=== PATIENT | female | born 1985 | race Caucasian/White ===

== ENCOUNTER 2019-10-28 17:23 | Emergency (ER) | payer OTHER, SELFPAY ==
--- NOTE | ~2019-10-28 | CT_ITS ---
EXAMINATION: CT brain wo con DATE: 10/28/2019 20:19 INDICATION: Migraine headache. TECHNIQUE: Computed tomography (CT) of the head was performed without intravenous contrast. The mA wa s adjusted according to patient size. Iterative reconstruction technique was employed. The dose-lengt h product was 529.67 mGy-cm. COMPARISON: None FINDINGS: There is no intracranial hemorrhage, acute infarction, or abnormal intracranial mass lesion . The ventricles are normal in size. The orbits are normal. There is mild mucosal thickening in the e thmoid sinuses. The mastoid air cells are normal. IMPRESSION: 1. Normal brain. Reviewed, dictated and finalized at location A. IMPRESSION: 1. Normal brain.
[2019-10-28 17:51] VITALS: BP 136/95; PULSE 105; RESP 18; TEMP 36.4; O2SAT 98
--- NOTE | 2019-10-28 19:43 | ED.PSYCH ---
HPI - Psych General Chief Complaint: Psychiatric Symptoms Stated Complaint: CARDENAS with hallucinations, denies SI/HI Time Seen by Provider: 10/28/19 19:43 Source: patient Mode of arrival: ambulatory Limitations: no limitations History of Present Illness HPI Narrative: Patient is a 34-year-old female with a history of schizophrenia bipolar disorder who presents for evaluation of hallucinations. Patient states that she was recently at the inpatient facility, [facility], where she was discharged home for hallucinations and prescribed out Haldol and Ativan. Patient has been unable to follow-up with a primary care physician and has not been able to fill her prescriptions thus she has continued to have daily hallucinations in which the voices are telling her to save the children of the world, eat certain foods and not foods. Patient denies the voices telling her to harm herself or harm others. She has no thoughts of suicide, no thoughts of homicidal ideation. She denies visual hallucinations. Patient states these hallucinations are consistent with her madeline and psychiatric illness. Patient states that she has been unable to sleep for 4 days, she did take 2 Xanax of belonged to her mother on Sunday evening and was able to sleep 8 hours. Patient states the hallucinations are constant for her. Patient also reports history of migraine headaches and currently reports dull, aching headache that has been present for 3 days. She states this is consistent with previous migraine headaches. She denies vision changes but does report sensitivity to light. She denies any numbness or weakness. Related Data Allergies Allergy/AdvReac Type Severity Reaction Status Date / Time iohexol Allergy Mild Hives Verified 01/17/19 13:44 [From CONTRAST - CT, XRAY] prednisone Allergy Mild Rash Verified 01/17/19 14:55 Review of Systems Review of Systems: Narrative: CONSTITUTIONAL: Denies fever, chills, or sweats. EYES: Denies visual changes, reports sensitivity to light, redness, or discharge. ENT: Denies rhinorrhea, congestion, sore throat, or otalgia. CARDIOVASCULAR: Denies chest pain, palpitations, or edema. RESPIRATORY: Denies cough or dyspnea. GASTROINTESTINAL: Denies abdominal pain, nausea, vomiting, or diarrhea. GENITOURINARY: Denies dysuria or hematuria. SKIN: Denies rash or itching. MUSCULOSKELETAL: Denies back pain, joint pain, or myalgia. NEUROLOGIC: Reports headache without numbness, or weakness. PSYCHIATRIC: Reports history of schizophrenia and bipolar disorder [facility] Past Medical History Medical History (Updated 10/28/19 @ 22:46 by Anjelica Bach MD) Bipolar disorder Healthy adult Schizophrenia Surgical History Surgical History (Updated 10/28/19 @ 20:46 by Anjelica Bach MD) H/O tubal ligation Social History Social History (Updated 10/28/19 @ 20:46 by Anjelica Bach MD) Smoking status: Never smoker Alcohol intake: current Substance use: current Substance use type: marijuana Gender identity (if verbalized by the patient): Female Agree to blood products: Yes Exam Narrative: Exam Narrative: GENERAL: Awake, alert, conversant HEAD: Normocephalic, atraumatic. EYES: PERRLA and EOMI. ENT: Nares clear, no rhinorrhea or epistaxis. Mucous membranes moist. NECK: Supple. CHEST: No respiratory distress, breathing even and non labored HEART: Regular rate, sinus rhythm ABDOMEN:Non distended, non tender EXTREMITIES: Normal range of motion. No edema. SKIN: Warm, dry, no rash. NEURO:No focal deficits. Alert and oriented x3 Course Vital Signs Vital signs: Vital Signs Temperature 36.4 C L 10/28/19 17:51 Pulse Rate 105 H 10/28/19 17:51 Respiratory Rate 18 10/28/19 17:51 Blood Pressure 136/95 H 10/28/19 17:51 Pulse Oximetry 98 10/28/19 17:51 Temperature 36.4 C L 10/28/19 17:51 Pulse Rate 85 10/28/19 20:40 Respiratory Rate 19 10/28/19 20:40 Blood Pressure 118/80
[2019-10-28] MEDS: SODIUM CHLORIDE 0.9% IV 1,000 ML 999 ML IV CONT (20:10)
[2019-10-28] MEDS: ACETAMINOPHEN 500 MG TABLET 1000 MG PO (20:11)
[2019-10-28] MEDS: METOCLOPRAMIDE HCL INJ 10 MG/2 ML VIAL IV PUSH (20:11)
[2019-10-28 20:13] LABS: Basophils Absolute Auto 0.1 K/mm3 (0.0-0.1); Basophils Percent Auto 0.6 % (0.2-1.2); Eosinophils Absolute Auto 0.2 K/mm3 (0-0.3); Hematocrit 40.6 % (37.0-47.0); Hemoglobin 13.3 g/dL (12.0-15.0); Immature Granulocyte Absolute 0.11 K/mm3 (0.00-0.031); Immature Granulocyte Percent A 1.1 % (0-0.5); Lymphocytes Absolute Auto 3.21 K/mm3 (0.9-3.2); Lymphocytes Percent Auto 32.1 % (18.3-44.2); Mean Corpuscular HGB Conc 32.8 g/dl (32-36); Mean Corpuscular Hemoglobin 29.3 pg (26-34); Mean Corpuscular Volume 89.4 fl (80-100); Mean Platelet Volume 9.3 fl (7.4-10.4); Monocytes Absolute Auto 0.6 K/mm3 (0.1-0.6); Monocytes Percent Auto 6.2 % (2.6-8.5); Neutrophils Absolute Auto 5.8 K/mm3 (1.3-6.7); Platelet Count Result 286 k/mm3 (150-375); Red Blood Count 4.54 M/mm3 (4.2-5.4)
[2019-10-28] MEDS: MAGNESIUM SULF 2 GM/WATER 50ML 2 GM/50 ML BAG IVPB (20:17)
[2019-10-28 20:24] LABS: Anion Gap 8 mmol/L (8-16); Blood Urea Nitrogen 11 mg/dL (7-17); Calcium 9.6 mg/dL (8.4-10.2); Carbon Dioxide 28 mmol/L (22-30); Chloride 102 mmol/L (98-107); Estimated CRCL calculation 107 ml/min; Estimated Glomerular Filt Rate > 60; Glucose 85 mg/dL (65-105); Potassium 3.9 mmol/L (3.4-5.0); Sodium 138 mmol/L (137-145)
[2019-10-28 20:26] LABS: Add Urine Microscopic? NO; Appearance Urine Clear (Clear); Bilirubin Urine Negative (Negative); Blood Urine Negative (Negative); Color Urine Colorless (Yellow); Glucose Urine UA Negative (Negative); Ketones Urine Negative (Negative); Leukocyte Esterase Ur Negative LEU/UL (Negative); Nitrate Urine Negative (Negative); Protein Urine Negative (Negative); Specific Grav Ur 1.005 (1.001-1.035); Urobilinogen Urine Negative mg/dL (<2.0)
[2019-10-28 20:28] LABS: Amphetamine Screen Urine Negative (Negative); Barbiturate Screen Urine Negative (Negative); Benzodiazepines Screen Urine Negative (Negative); Cannabinoid Screen Urine Positive (Negative); Cocaine Screen Urine Negative (Negative); Methadone Screen Urine Negative (Negative); Opiate Screen Urine Negative (Negative); Phencyclidine Screen Urine Negative (Negative)
[2019-10-28 20:40] VITALS: BP 118/80; PULSE 85; RESP 19; O2SAT 98
--- NOTE | 2019-10-28 20:45 | PC.NURSE ---
called lab to add on a MG
[2019-10-28 23:15] VITALS: BP 119/81; PULSE 69; RESP 19; TEMP 36.3; O2SAT 98
== END 2019-10-28 23:16 | disposition home or self-care (01) ==
PROVIDERS: Emergency Provider Emergency Medicine; Referring Provider Family Medicine
DX: R44.3 Hallucinations, unspecified (principal); F31.9 Bipolar disorder, unspecified
CPT/HCPCS: 36415; 70450; 80048; 80307; 81003; 81025; 83735; 84443; 85025; 96365; 96375; 99284; A9270; J2765; J3475; J7030

== ENCOUNTER 2020-07-17 18:16 | Emergency (ER) | payer OTHER, SELFPAY ==
[2020-07-17 18:25] VITALS: BP 129/82; PULSE 80; RESP 18; TEMP 37; O2SAT 100
[2020-07-17 18:35] VITALS: BP 129/82; PULSE 80; RESP 18; TEMP 37; O2SAT 100
--- NOTE | 2020-07-17 18:46 | ED.GENADULT ---
HPI - General Adult General Chief complaint: Unspecified Stated complaint: Hemorrhoids Source: patient and RN notes reviewed Limitations: no limitations History of Present Illness HPI narrative: The patient, generally healthy on no meds, presents with constipation. Patient states she has had 3 children vaginally and no other abdominal surgeries / procedures and now has about a 2-week history of constipation, that is associated with occasional rectal spotting. Symptoms are mild to moderate, patient has no focal of milk of magnesia, oral fleets; no weight loss, vaginal discharge,N/V, hematuria, fever, abd pain. She had a prior history of abdominal CT scan for endometriosis which was noncontributory just in the last 1 to 2 years. Related Data Home Medications Medication Instructions Recorded Confirmed No Home Medications 07/17/20 07/17/20 Allergies Allergy/AdvReac Type Severity Reaction Status Date / Time iohexol Allergy Mild Hives Verified 01/17/19 13:44 [From CONTRAST - CT, XRAY] prednisone Allergy Mild Rash Verified 01/17/19 14:55 Review of Systems Review of Systems: Narrative: General/Constitutional: No weight loss,fever Eyes: N0: Redness,discharge Ears/Nose/Throat: No: Epistaxis,ear discharge Respiratory: Denies: Hemoptysis Gastrointestinal: No Vomiting, Bleeding-rectal Skin: No Lumps, eruption Neurologic: No Focal Weakness,Sz Hematologic: Denies: Petechiae/Purpura Psychiatric: No: Suicida ideationl All Other Systems: Reviewed and Negative [facility] Past Medical History Medical History (Updated 07/17/20 @ 19:09 by Valdemar Kaur MD) Bipolar disorder Healthy adult Schizophrenia Surgical History Surgical History (Updated 10/28/19 @ 20:46 by Anjelica Bach MD) H/O tubal ligation Family History Family History Mother Breast cancer Social History Social History (Updated 10/28/19 @ 20:46 by Anjelica Bach MD) Smoking status: Never smoker Alcohol intake: current Substance use: current Substance use type: marijuana Gender identity (if verbalized by the patient): Female Agree to blood products: Yes Comments At time of signature, agree with nursing past medical, surgical, social and family history. There is no relevant family history pertinent to the presenting complaint Exam Narrative: Exam Narrative: General Appearance: appearing, No distress, Conjunctiva clear Ears: External ear normal Nose: Normal nose Mouth/Throat: Normal appearing, Normal lips Neck: Supple Respiratory: Airway patent, No respiratory distress Abdomen: Soft, Non-tender; rectal: No hemorrhoids, fissure or heme seen, impacted stool at fingertip Musculoskeletal: Full ROM Skin: Warm, Dry Neurological: A&O x3,flat affect Course Vital Signs Vital signs: Vital Signs Temperature 98.6 F 07/17/20 18:25 Pulse Rate 80 07/17/20 18:25 Respiratory Rate 18 07/17/20 18:25 Blood Pressure 129/82 07/17/20 18:25 Pulse Oximetry 100 07/17/20 18:25 Temperature 98.6 F 07/17/20 18:35 Pulse Rate 80 07/17/20 18:35 Respiratory Rate 18 07/17/20 18:35 Blood Pressure 129/82 07/17/20 18:35 Pulse Oximetry 100 07/17/20 18:35 Medical Decision Making Vital Signs Vital Signs: Vital Signs Temperature 98.6 F 07/17/20 18:25 Pulse Rate 80 07/17/20 18:25 Respiratory Rate 18 07/17/20 18:25 Blood Pressure 129/82 07/17/20 18:25 Pulse Oximetry 100 07/17/20 18:25 Temperature 98.6 F 07/17/20 18:35 Pulse Rate 80 07/17/20 18:35 Respiratory Rate 18 07/17/20 18:35 Blood Pressure 129/82 07/17/20 18:35 Pulse Oximetry 100 07/17/20 18:35 Discharge Plan Discharge Clinical Impression: Rectal bleeding Constipation Qualifiers: Constipation type: unspecified constipation type Qualified Code(s): K59.00 - Constipation, unspecified Patient Disposition: Home, Self-Care Condition: Stable
== END 2020-07-17 18:53 | disposition home or self-care (01) ==
PROVIDERS: Emergency Provider Emergency Medicine
DX: K59.00 Constipation, unspecified (principal)
CPT/HCPCS: 99211; G0463

== ENCOUNTER 2020-08-30 11:25 | Emergency (ER) | payer OTHER, SELFPAY ==
--- NOTE | 2020-08-30 11:34 | ED.GENADULT ---
HPI - General Adult General Chief complaint: Urogenital-Female Stated complaint: uti Time Seen by Provider: 08/30/20 11:34 Source: patient and RN notes reviewed Mode of arrival: ambulatory Limitations: no limitations History of Present Illness HPI narrative: 35-year-old female presents with urinary complaints for the past 3 days. Suzette reports increasing burning and pressure with urination daily. Dysuria consists of burning, suprapubic pain, mid-lower back pain, frequency, and pressure. No treatment. Denies fever. No significant pelvic pain. No vaginal discharge. No concerns for STDs, no sex in over a year. Exacerbating factors urinating. Denies hematuria or vaginal bleeding. ?LMP 08/17-02/01. Denies nausea and vomiting.? Tolerating liquids well.? Remains active. ?The patient reports she has not been diagnosed with COVID-19. The patient reports she is not waiting for the results of a COVID-19 lab test. The patient reports he does not have chills, weakness, or fatigue. ?The patient reports he does not have a new or worsening cough or shortness of breath. ?Denies chest pain. ?The patient reports he does not have any rhinorrhea, congestion, loss of taste or smell, sore throat, and diarrhea. ?Denies recent traveling. Denies concerns for COVID-19 or exposures. ?At this time, the patient is not suspected of having COVID-19. ? Some parts of this dictation were generated by voice recognition software and may contain typographical and/or grammatical inaccuracies. Related Data Home Medications Medication Instructions Recorded Confirmed acetaminophen [Tylenol] 650 mg PO TID 08/30/20 08/30/20 Allergies Allergy/AdvReac Type Severity Reaction Status Date / Time iohexol Allergy Mild Hives Verified 08/30/20 11:47 [From CONTRAST - CT, XRAY] Review of Systems Review of Systems: Narrative: CONSTITUTIONAL: Denies fever, chills, sweats. EYES: Denies visual changes, redness, discharge. ENT: Denies rhinorrhea, congestion, sore throat, otalgia. CARDIOVASCULAR: Denies chest pain, palpitations, edema. RESPIRATORY: Denies dyspnea, wheezing, cough. GASTROINTESTINAL: Denies abdominal pain, nausea, vomiting, diarrhea. GENITOURINARY: Complains of dysuria (burning, suprapubic pain, mid-lower back pain, frequency, and pressure). Denies hematuria, abnormal discharge. SKIN: Denies rash or itching. MUSCULOSKELETAL: Complains of acute mid-back pain. Denies joint pain, or myalgia. NEUROLOGIC: Denies numbness or focal weakness. PSYCHIATRIC: Denies anxiety or depression. All systems reviewed & are unremarkable except as noted in HPI and below. PMFSH Past Medical History Medical History Bipolar disorder Healthy adult Schizophrenia Smoker Surgical History Surgical History (Updated 08/30/20 @ 12:29 by NETTE Garcia) H/O tubal ligation History of endometrial ablation Family History Family History (Updated 08/30/20 @ 12:41 by NETTE Garcia) Mother Breast cancer Father Unknown family medical history Social History Social History (Updated 08/30/20 @ 12:41 by NETTE Garcia) Smoking packs per day: 0.25 Smoking cigarettes per day: 5.0 Years smoked: 1 Smoking pack-years: 0.25 Smoking status: Current every day smoker Tobacco type: cigarettes Second hand tobacco smoke exposure: Yes Alcohol intake: current Substance use: current Substance use type: marijuana Living arrangements: with family Occupation/Education: unemployed Gender identity (if verbalized by the patient): Female Sexual Orientation (if Verbalized by the Patient): Straight or Heterosexual Agree to blood products: Yes Comments At time of signature, agree with the nurse past medical, surgical, social, and family history.? There is no relevant family history pertinent to the presenting complaint. Exam Narrative: Exam Narrative: GENERAL: This is a well-nourished, well-developed patient, in no apparent distr
[2020-08-30 11:35] VITALS: BP 138/84; PULSE 76; RESP 17; TEMP 36.8; O2SAT 99
== END 2020-08-30 12:14 | disposition home or self-care (01) ==
PROVIDERS: Emergency Provider Nurse Practitioner Family
DX: R30.0 Dysuria (principal); F17.210 Nicotine dependence, cigarettes, uncomplicated
CPT/HCPCS: 81003; 99213; G0463

== ENCOUNTER 2020-09-08 00:53 | Emergency (ER) | payer OTHER, SELFPAY ==
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
[2020-09-08 00:56] VITALS: BP 135/92; PULSE 95; RESP 16; TEMP 36.8; O2SAT 98
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
[2020-09-08 02:13] VITALS: BP 128/77; PULSE 79; RESP 16; O2SAT 97
[2020-09-08] MEDS: ACETAMINOPHEN 500 MG TABLET 1000 MG PO (02:23)
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
[2020-09-08 03:07] VITALS: BP 133/94; PULSE 82; RESP 13; O2SAT 100
== END 2020-09-08 03:16 | disposition home or self-care (01) ==
PROVIDERS: Emergency Provider Nurse Practitioner
DX: S09.90XA Unspecified injury of head, initial encounter (principal); F17.210 Nicotine dependence, cigarettes, uncomplicated; F31.9 Bipolar disorder, unspecified; Y04.0XXA Assault by unarmed brawl or fight, initial encounter
CPT/HCPCS: 70450; 72125; 99284; A9270

== ENCOUNTER 2020-09-13 14:03 | Emergency (ER) | payer OTHER, SELFPAY ==
[2020-09-13 14:04] VITALS: BP 104/92; PULSE 84; RESP 20; TEMP 36.6; O2SAT 100
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
[2020-09-13 16:42] LABS: Basophils Percent Auto 0.2 % (0.2-1.2); Eosinophils Percent Auto 0.1 % (0-4.4); Hemoglobin 14.4 g/dL (12.0-15.0); Immature Granulocyte Absolute 0.02 K/mm3 (0.00-0.031); Immature Granulocyte Percent A 0.2 % (0-0.5); Lymphocytes Absolute Auto 1.31 K/mm3 (0.9-3.2); Lymphocytes Percent Auto 14.7 % (18.3-44.2); Mean Corpuscular HGB Conc 32.7 g/dl (32-36); Mean Corpuscular Hemoglobin 29.1 pg (26-34); Mean Corpuscular Volume 89.1 fl (80-100); Mean Platelet Volume 8.5 fl (7.4-10.4); Monocytes Absolute Auto 0.3 K/mm3 (0.1-0.6); Monocytes Percent Auto 3.1 % (2.6-8.5); Neutrophils Absolute Auto 7.3 K/mm3 (1.3-6.7); Neutrophils Percent Auto 81.7 % (45.5-73.1); Platelet Count Result 313 k/mm3 (150-375); Red Blood Count 4.94 M/mm3 (4.2-5.4); Red Cell Distribution Width 15.9 % (11.5-14.5); White Blood Count 8.9 K/mm3 (4.5-10.0)
[2020-09-13 16:52] LABS: Alanine Aminotransferase 20 U/L (4-35); Alkaline Phosphatase 70 U/L (38-126); Anion Gap 9 mmol/L (8-16); Aspartate Amino Transferase 31 U/L (14-36); Bilirubin,Total 0.5 mg/dL (0.2-1.3); Blood Urea Nitrogen 4 mg/dL (7-17); Carbon Dioxide 26 mmol/L (22-30); Chloride 106 mmol/L (98-107); Estimated CRCL calculation 122 ml/min; Estimated Glomerular Filt Rate > 60; Glucose 94 mg/dL (65-110); Potassium 3.8 mmol/L (3.4-5.0); Sodium 141 mmol/L (137-145)
[2020-09-13] MEDS: SODIUM CHLORIDE 0.9% IV 1,000 ML 999 ML IV CONT (17:00)
[2020-09-13] MEDS: KETOROLAC 30 MG/ML VIAL (*BKC) IV PUSH (17:01)
--- NOTE | 2020-09-13 18:30 | PC.NURSE ---
Up to BR to void. C-collar removed per Maryana Diallo. Continues to c/o tasting blood in mouth, no bleeding noted in oral cavity. Water given.
[2020-09-13 18:42] VITALS: BP 124/70; RESP 16; TEMP 36.9; O2SAT 99
== END 2020-09-13 18:40 | disposition home or self-care (01) ==
PROVIDERS: Emergency Provider Nurse Practitioner
DX: R51.9 Headache, unspecified (principal); M54.12 Radiculopathy, cervical region; F17.210 Nicotine dependence, cigarettes, uncomplicated
CPT/HCPCS: 36415; 80053; 85025; 96361; 96365; 96375; 99284; J0131; J1885; J7030

== ENCOUNTER 2020-10-22 18:26 | Emergency (ER) | payer OTHER, SELFPAY ==
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
[2020-10-22 18:32] VITALS: BP 128/82; PULSE 119; RESP 18; TEMP 36.6; O2SAT 98
[2020-10-22 19:51] VITALS: BP 120/84; PULSE 89; RESP 16; TEMP 36.2; O2SAT 98; O2SAT 99
--- NOTE | 2020-10-22 19:58 | PC.NURSE ---
Patient reports pain to her eyes worse with light. States she has been having headaches for the last 4 days. Patient up to the bathroom to provide urine at this time.
[2020-10-22] MEDS: PROCHLORPERAZINE EDISYLATE 10 MG/2 ML VIAL IV PUSH (20:51)
[2020-10-22] MEDS: diphenhydrAMINE HCl INJ 50 MG/ML VIAL IV PUSH (20:51)
[2020-10-22] MEDS: SODIUM CHLORIDE 0.9% IV 1,000 ML 999 ML IV CONT (20:52)
[2020-10-22] MEDS: KETOROLAC 30 MG/ML VIAL (*BKC) IV PUSH (20:52)
[2020-10-22 20:58] LABS: Basophils Percent Auto 0.3 % (0.2-1.2); Eosinophils Percent Auto 0.4 % (0-4.4); Hematocrit 45.8 % (37.0-47.0); Hemoglobin 15.3 g/dL (12.0-15.0); Immature Granulocyte Absolute 0.01 K/mm3 (0.00-0.031); Immature Granulocyte Percent A 0.1 % (0-0.5); Lymphocytes Absolute Auto 1.51 K/mm3 (0.9-3.2); Lymphocytes Percent Auto 19.3 % (18.3-44.2); Mean Corpuscular HGB Conc 33.4 g/dl (32-36); Mean Corpuscular Volume 92.7 fl (80-100); Mean Platelet Volume 8.8 fl (7.4-10.4); Monocytes Absolute Auto 0.4 K/mm3 (0.1-0.6); Monocytes Percent Auto 4.6 % (2.6-8.5); Neutrophils Absolute Auto 5.9 K/mm3 (1.3-6.7); Neutrophils Percent Auto 75.3 % (45.5-73.1); Platelet Count Result 332 k/mm3 (150-375); Red Blood Count 4.94 M/mm3 (4.2-5.4); Red Cell Distribution Width 14.1 % (11.5-14.5); White Blood Count 7.8 K/mm3 (4.5-10.0)
[2020-10-22 21:01] LABS: Add Urine Microscopic? NO; Appearance Urine Clear (Clear); Bilirubin Urine Negative (Negative); Blood Urine Negative (Negative); Color Urine Straw (Yellow); Glucose Urine UA Negative (Negative); Ketones Urine Negative (Negative); Leukocyte Esterase Ur Negative LEU/UL (Negative); Nitrate Urine Negative (Negative); Protein Urine Negative (Negative); Specific Grav Ur 1.009 (1.001-1.035); Urobilinogen Urine Negative mg/dL (<2.0)
[2020-10-22 21:08] LABS: Alanine Aminotransferase 23 U/L (4-35); Albumin Level 5.1 g/dL (3.5-5.1); Alkaline Phosphatase 85 U/L (38-126); Anion Gap 17 mmol/L (8-16); Aspartate Amino Transferase 30 U/L (14-36); Bilirubin,Total 0.6 mg/dL (0.2-1.3); Blood Urea Nitrogen 13 mg/dL (7-17); Calcium 9.6 mg/dL (8.4-10.2); Carbon Dioxide 21 mmol/L (22-30); Chloride 108 mmol/L (98-107); Estimated CRCL calculation 78 ml/min; Estimated Glomerular Filt Rate > 60; Glucose 109 mg/dL (65-110); Potassium 3.5 mmol/L (3.4-5.0); Sodium 146 mmol/L (137-145)
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
--- NOTE | 2020-10-22 21:49 | ED.GENADULT ---
HPI - General Adult General Chief complaint: Head Injury Stated complaint: head trauma, nose bleed Time Seen by Provider: 10/22/20 19:42 Related Data Home Medications Medication Instructions Recorded Confirmed acetaminophen [Tylenol] 650 mg PO TID 08/30/20 08/30/20 Allergies Allergy/AdvReac Type Severity Reaction Status Date / Time iohexol Allergy Mild Hives Verified 08/30/20 11:47 [From CONTRAST - CT, XRAY] PMFSH Past Medical History Medical History Bipolar disorder Healthy adult Schizophrenia Smoker Surgical History Surgical History H/O tubal ligation History of endometrial ablation Family History Family History Mother Breast cancer Father Unknown family medical history Social History Social History Smoking packs per day: 0.25 Smoking cigarettes per day: 5.0 Years smoked: 1 Smoking pack-years: 0.25 Smoking status: Current every day smoker Tobacco type: cigarettes Second hand tobacco smoke exposure: Yes Alcohol intake: current Substance use: current Substance use type: marijuana Gender identity (if verbalized by the patient): Female Sexual Orientation (if Verbalized by the Patient): Straight or Heterosexual Agree to blood products: Yes Course Vital Signs Vital signs: Vital Signs Temperature 36.6 C 10/22/20 18:32 Pulse Rate 119 H 10/22/20 18:32 Respiratory Rate 18 10/22/20 18:32 Blood Pressure 128/82 10/22/20 18:32 Pulse Oximetry 98 10/22/20 18:32 Temperature 36.2 C L 10/22/20 19:51 Pulse Rate 89 10/22/20 19:51 Respiratory Rate 16 10/22/20 19:51 Blood Pressure 120/84 10/22/20 19:51 Pulse Oximetry 99 10/22/20 19:51 Medical Decision Making Vital Signs Vital Signs: Vital Signs Temperature 36.6 C 10/22/20 18:32 Pulse Rate 119 H 10/22/20 18:32 Respiratory Rate 18 10/22/20 18:32 Blood Pressure 128/82 10/22/20 18:32 Pulse Oximetry 98 10/22/20 18:32 Temperature 36.2 C L 10/22/20 19:51 Pulse Rate 89 10/22/20 19:51 Respiratory Rate 16 10/22/20 19:51 Blood Pressure 120/84 10/22/20 19:51 Pulse Oximetry 99 10/22/20 19:51 Lab Data Result diagrams: 10/22/20 20:50 10/22/20 20:50 Labs: Lab Results 10/22/20 10/22/20 10/22/20 Range/Units 20:38 20:50 20:50 WBC 7.8 (4.5-10.0) K/mm3 RBC 4.94 (4.2-5.4) M/mm3 Hgb 15.3 H (12.0-15.0) g/dL Hct 45.8 (37.0-47.0) % MCV 92.7 (80-100) fl MCH 31.0 (26-34) pg MCHC 33.4 (32-36) g/dl RDW 14.1 (11.5-14.5) % Plt Count 332 (150-375) k/mm3 MPV 8.8 (7.4-10.4) fl Immature Gran % (Auto) 0.1 (0-0.5) % Neut % (Auto) 75.3 H (45.5-73.1) % Lymph % (Auto) 19.3 (18.3-44.2) % [place] % (Auto) 4.6 (2.6-8.5) % Eos % (Auto) 0.4 (0-4.4) % Baso % (Auto) 0.3 (0.2-1.2) % Lymph # (Auto) 1.51 (0.9-3.2) K/mm3 [place] # (Auto) 0.4 (0.1-0.6) K/mm3 Eos # (Auto) 0.0 (0-0.3) K/mm3 Baso # (Auto) 0.0 (0.0-0.1) K/mm3 Abs Immat Gran (auto) 0.01 (0.00-0.031) K/mm3 Absolute Neuts (auto) 5.9 (1.3-6.7) K/mm3 Absolute Nucleated RBC 0.0 (0.0-0.012) K/mm3 Nucleated RBC % 0.0 (0.0-0.2) % Sodium 146 H (137-145) mmol/L Potassium 3.5 (3.4-5.0) mmol/L Chloride 108 H (98-107) mmol/L Carbon Dioxide 21 L (22-30) mmol/L Anion Gap 17 H (8-16) mmol/L BUN 13 D (7-17) mg/dL Creatinine 0.70 (0.7-1.0) mg/dL Estim Creat Clear Calc 78 ml/min Estimated GFR > 60 (59 - ) Glucose 109 (65-110) mg/dL Calcium 9.6 (8.4-10.2) mg/dL Total Bilirubin 0.6 (0.2-1.3) mg/dL AST 30 (14-36) U/L ALT 23 (4-35) U/L Alkaline Phosphatase 85 (38-126) U/L Total Protein 8.0 (6.3-8.2) g/dL Albumin 5.1 (3.5-5.1) g/dL Urine Color Straw (
[2020-10-22 22:50] VITALS: BP 120/84; PULSE 89; RESP 19; TEMP 36.6; O2SAT 99
== END 2020-10-22 22:52 | disposition home or self-care (01) ==
PROVIDERS: Emergency Provider Emergency Medicine
DX: G44.309 Post-traumatic headache, unspecified, not intractable (principal); F07.81 Postconcussional syndrome; F17.210 Nicotine dependence, cigarettes, uncomplicated
CPT/HCPCS: 36415; 70450; 70486; 74176; 80053; 81003; 81025; 85025; 96365; 96375; 99284; J0131; J0780; J1200; J1885; J7030

== ENCOUNTER 2020-10-27 10:47 | Emergency (ER) | payer OTHER, SELFPAY ==
[2020-10-27 11:06] VITALS: BP 148/99; PULSE 71; RESP 18; TEMP 36.5; O2SAT 100
--- NOTE | 2020-10-27 11:57 | ED.ALLEREA ---
HPI - Allergic Reaction General Chief complaint: Allergic Reaction Stated complaint: Allergic reaction Time Seen by Provider: 10/27/20 11:30 Source: patient Mode of arrival: ambulatory Limitations: no limitations History of Present Illness HPI narrative: 35-year-old female Here because of a generalized pruritic rash and nausea She thinks this is from taking Tylenol recently after she came to the ED for a headache She has not been newly exposed to anything else she thinks she might be allergic to, no suspect foods or cutaneous exposures, no insect bites The only other thing I see in the chart is she got prescription for Macrodantin 2 months ago She has taken Tylenol before without problems but notes that 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 almost overnight when she was younger She does not have any wheezing or hoarseness or stridor Related Data Home Medications Medication Instructions Recorded Confirmed acetaminophen [Tylenol] 650 mg PO TID 08/30/20 08/30/20 Allergies Allergy/AdvReac Type Severity Reaction Status Date / Time iohexol Allergy Mild Hives Verified 08/30/20 11:47 [From CONTRAST - CT, XRAY] prednisone Allergy Rash Verified 10/27/20 11:45 Review of Systems Review of Systems: All systems reviewed & are unremarkable except as noted in HPI and below Constitutional: Constitutional: Denies headache(s) and Reports weakness Eyes: Eyes: Reports no additional eye complaints and Denies change in vision ENT: Denies headache(s) Cardiovascular: Cardiovascular: Denies dyspnea Respiratory: Respiratory: Denies cough, Reports dyspnea and Denies wheezing Gastrointestinal: Gastrointestinal: Denies diarrhea, Reports nausea and Reports vomiting Genitourinary: Genitourinary: Denies urinary frequency and Denies dysuria Musculoskeletal: Musculoskeletal: Denies deformity and Denies numbness Integumentary/Breasts: Skin/Breast: Reports pruritus, Reports rash and Denies wounds Neurologic: Reports headache(s) and Denies numbness Allergic/Immunologic: Allergic/Immunologic: Reports no additional allergic/immunologic complaints PMFSH Past Medical History Medical History Bipolar disorder Healthy adult Schizophrenia Smoker Surgical History Surgical History H/O tubal ligation History of endometrial ablation Family History Family History Mother Breast cancer Father Unknown family medical history Social History Social History Smoking packs per day: 0.25 Smoking cigarettes per day: 5.0 Years smoked: 1 Smoking pack-years: 0.25 Smoking status: Current every day smoker Tobacco type: cigarettes Second hand tobacco smoke exposure: Yes Alcohol intake: current Substance use: current Substance use type: marijuana Gender identity (if verbalized by the patient): Female Sexual Orientation (if Verbalized by the Patient): Straight or Heterosexual Agree to blood products: Yes Exam Const: General: cooperative, no acute distress and alert Nutritional Appearance: thin Orientation/consciousness: patient oriented x3 (alert) HENMT: Head: normal to inspection, normocephalic and atraumatic Ears: external ears normal General nose exam: no epistaxis Mouth: Yes Normal oral and palatal mucosa present and Yes moist mucous membranes Eyes: Conjunctivae: conjunctivae normal EOM: EOMs intact bilaterally Neck: Neck: normal visual inspection, supple and no JVD Resp: Effort & Inspection: normal respiratory effort and not labored Auscultation: clear to auscultation bilaterally, no rales, no rhonchi, no wheezes and other (BS =) Skin: General skin exam: no rashes or lesions noted Other: Generalized pruritic papular eruption arms, legs, trunk, looks like urticaria, some of the lesions have a slightly pale halo around t
[2020-10-27] MEDS: ONDANSETRON HCL ODT 4 MG TABLET PO (12:18)
[2020-10-27] MEDS: FAMOTIDINE 20 MG TABLET 40 MG PO (12:18)
[2020-10-27] MEDS: diphenhydrAMINE HCl CAP 25 MG CAPSULE 50 MG PO (12:18)
== END 2020-10-27 12:45 | disposition home or self-care (01) ==
PROVIDERS: Emergency Provider Emergency Medicine; PCP Family Medicine
DX: L50.9 Urticaria, unspecified (principal); F17.210 Nicotine dependence, cigarettes, uncomplicated
CPT/HCPCS: 96372; 99283; A9270; J1100

== ENCOUNTER 2021-07-13 10:51 | Emergency (ER) | payer OTHER, SELFPAY ==
--- NOTE | 2021-07-13 11:00 | ED.URI ---
HPI - URI/Sore Throat General Chief Complaint: Upper Respiratory Infection Stated Complaint: sorethroat Time Seen by Provider: 07/13/21 11:00 Source: patient Mode of arrival: ambulatory Limitations: no limitations History of Present Illness HPI Narrative: Ms. Eng is a 35-year-old female patient presenting to the clinic today with complaints of sore throat. She reports Related Data Home Medications Medication Instructions Recorded Confirmed benztropine 1 mg tablet 1 tablet DAILY 07/13/21 07/13/21 calcium carbonate 200 mg calcium 200 tablet QID 07/13/21 07/13/21 (500 mg) chewable tablet doxepin 50 mg capsule 50 cap DAILY 07/13/21 07/13/21 gabapentin 300 mg capsule 300 cap TID 07/13/21 07/13/21 haloperidol 2 mg tablet 2 tablet TID 07/13/21 07/13/21 hydroxyzine HCl 25 mg tablet 25 tablet Q6-12H 07/13/21 07/13/21 meloxicam 15 mg tablet 15 tablet DAILY 07/13/21 07/13/21 paliperidone 9 mg tablet,extended 9 tablet PO QAM 07/13/21 07/13/21 release 24 hr trazodone 50 mg tablet 50 tablet DAILY 07/13/21 07/13/21 Allergies Allergy/AdvReac Type Severity Reaction Status Date / Time iohexol Allergy Mild Hives Verified 07/13/21 11:15 [From CONTRAST - CT, XRAY] acetaminophen [From Tylenol] Allergy Unknown Verified 07/13/21 11:15 banana Allergy Unknown Verified 07/13/21 11:15 prednisone Allergy Rash Verified 07/13/21 11:15 Review of Systems Review of Systems: Pertinent positives per HPI. Patient denies any fever, chills, rash, headache, visual changes, dizziness, cough, runny nose, sore throat, shortness of breath, chest pain, palpitations, nausea, vomiting, diarrhea, constipation, abdominal pain, or any urinary issues. PMFSH Past Medical History Medical History Bipolar disorder Healthy adult Schizophrenia Smoker Surgical History Surgical History H/O tubal ligation History of endometrial ablation Family History Family History Mother Breast cancer Father Unknown family medical history Social History Social History Smoking packs per day: 0.25 Smoking cigarettes per day: 5.0 Years smoked: 1 Smoking pack-years: 0.25 Smoking status: Current every day smoker Tobacco type: cigarettes Second hand tobacco smoke exposure: Yes Alcohol intake: current Substance use: current Substance use type: marijuana Gender identity (if verbalized by the patient): Female Sexual Orientation (if Verbalized by the Patient): Straight or Heterosexual Agree to blood products: Yes Comments At the time of my signature, I reviewed and agree with the nursing past medical, surgical, social, and family history. There is no relevant family history pertinent to the patient complaint. Exam Narrative: General: Well-developed, well nourished, in no apparent distress Head: Normocephalic, atraumatic Eyes: Pupils equally round and reactive to light bilaterally, EOM intact, sclera and conjunctive clear, no discharge, lids normal Ears: TMs intact and clear, ear canals clear, no drainage, grossly hearing normal. Nose: Nares patent, clear discharge, no inflammation, no sinus tenderness. Mouth: Oropharynx without lesions or masses, good dentition, MMM. Oropharynx red, white exudate with tonsillar swelling bilaterally Neck: Supple, trachea midline, positive enlargement of anterior cervical nodes, no thyroid masses or goiter palpable. Cardio: Regular rate and rhythm, s1 and s2 normal, no murmur appreciated. Resp: Clear to auscultation bilaterally anteriorly and posteriorly, no rhonchi, rales, wheezing or rubs Course Course Emergency Course: Portions of this record may have been created with voice recognition software. Level of Care: Express Care Visit Vital Signs Vital signs: Vital signs reviewed MDM - URI/Sore Throat
[2021-07-13 11:08] VITALS: BP 99/73; PULSE 111; RESP 18; TEMP 36.3; O2SAT 98
== END 2021-07-13 11:26 | disposition home or self-care (01) ==
PROVIDERS: Emergency Provider Nurse Practitioner Family
DX: J02.0 Streptococcal pharyngitis (principal); F17.210 Nicotine dependence, cigarettes, uncomplicated; F20.9 Schizophrenia, unspecified
CPT/HCPCS: 87880; 99213; G0463

== ENCOUNTER 2022-03-17 09:57 | Emergency (ER) | payer OTHER, SELFPAY ==
[2022-03-17 10:08] VITALS: BP 129/84; PULSE 87; RESP 18; TEMP 36.4; O2SAT 100
--- NOTE | 2022-03-17 10:08 | ED.NAVMDI ---
HPI - Nausea/Vomiting/Diarrhea General Chief complaint: Nausea/Vomiting/Diarrhea Stated complaint: nausea Time Seen by Provider: 03/17/22 10:08 Source: patient, RN notes reviewed and old records reviewed Mode of arrival: ambulatory Limitations: no limitations History of Present Illness HPI Narrative: 36-year-old female presents to the [facility] with complaints of nausea. Recently evaluated by primary care provider and started on omeprazole. Patient continues to have nausea. Reports trying a call primary care provider who could not get appointment today. patient states the symptoms have been going on for several weeks Denies any fevers. Reports urinary frequency but no other symptoms. Denies any abdominal pain, flank pain. Denies vomiting Onset (ago): week(s) Related Data Home Medications Medication Instructions Recorded Confirmed calcium carbonate 200 mg calcium 200 tablet QID 07/13/21 03/17/22 (500 mg) chewable tablet haloperidol 2 mg tablet 2 tablet TID 07/13/21 03/17/22 hydroxyzine HCl 25 mg tablet 25 tablet Q6-12H 07/13/21 03/17/22 sertraline 25 mg tablet 25 mg DIRECTED 03/17/22 03/17/22 Allergies Allergy/AdvReac Type Severity Reaction Status Date / Time iohexol Allergy Mild Hives Verified 02/28/22 07:51 [From CONTRAST - CT, XRAY] banana Allergy Unknown Verified 02/28/22 07:51 prednisone Allergy Rash Verified 02/28/22 07:51 Review of Systems Review of Systems: All systems reviewed & are unremarkable except as noted in HPI and below Constitutional: Constitutional: Reports no additional constitutional complaints Eyes: Eyes: Reports no additional eye complaints ENT: Reports system reviewed and no additional complaints, except as documented Cardiovascular: Cardiovascular: Reports no additional cardiovascular complaints, Denies chest pain and Denies dyspnea Respiratory: Respiratory: Reports no additional respiratory complaints, Denies chest congestion, Denies cough and Denies dyspnea Gastrointestinal: Gastrointestinal: Reports as per HPI, Denies abdominal pain, Denies diarrhea, Reports nausea and Denies vomiting Genitourinary: Genitourinary: Reports as per HPI Musculoskeletal: Musculoskeletal: Reports no additional musculoskeletal complaints Integumentary/Breasts: Skin/Breast: Reports system reviewed and no additional complaints, except as docu Neurologic: Reports system reviewed and no additional complaints, except as documented Psychiatric: Psychiatric: Reports no additional psychiatric complaints Allergic/Immunologic: Allergic/Immunologic: Reports no additional allergic/immunologic complaints PMFSH Past Medical History Medical History Arthralgia Bipolar disorder BMI 27.0-27.9,adult BMI 29.0-29.9,adult Fibromyalgia Healthy adult Schizoaffective disorder Schizophrenia Sciatica of left side Smoker Surgical History Surgical History H/O tubal ligation History of endometrial ablation Family History Family History Mother Breast cancer Depression Carcinoma of colon Father Unknown family medical history Sibling No problems noted. Social History Social History Smoking packs per day: 0.25 Smoking cigarettes per day: 5.0 Years smoked: 1 Smoking pack-years: 0.25 Smoking status: Current every day smoker (1/2 ppd) Tobacco type: cigarettes Second hand tobacco smoke exposure: Yes Alcohol intake: current Substance use: current Substance use type: marijuana Living arrangements: with family Occupation/Education: occupation Additional occupation/education comments: [employer] Gender identity (if verbalized by the patient): Female Sexual Orientation (if Verbalized by the Patient): Straight or Heterosexual Agree to blood products: Yes Comments At the time of my s
== END 2022-03-17 10:49 | disposition home or self-care (01) ==
PROVIDERS: Emergency Provider Nurse Practitioner; PCP Family Medicine
DX: R11.0 Nausea (principal); M79.7 Fibromyalgia; F20.9 Schizophrenia, unspecified; F17.210 Nicotine dependence, cigarettes, uncomplicated
CPT/HCPCS: 81003; 81025; 87086; 99213; G0463

== ENCOUNTER 2022-05-17 01:20 | Day surgery (SDC) | payer OTHER, SELFPAY ==
[2022-05-08 09:01] VITALS: BMI 31.1
--- NOTE | 2022-05-17 10:31 | SUR.PREOP ---
Patient called today at 1030 in regards to coming in early. Message left on her voicemail. Patient was called several times the last couple of day with message left on voicemail to call back and not call was returned. Her seasonal driver was also called with a no answer out come. I was unable to leave a message on her Mon's (seasonal driver) number as the voicemail was not set up.
--- NOTE | 2022-05-17 12:27 | WPDANESEPPF ---
Anes - Initial Pre Proc Eval Procedure: Operation Date: 05/17/22 14:15 Proposed Procedures p Esophagogastroduodenoscopy & Colonoscopy - Nilton Quevedo MD Date/Time: 05/17/22 12:27 Surgeon: Nilton Quevedo MD Pre Op Diagnosis: N&V,rectal bleed,family hx colon ca Patient Data Age: 36 Gender: F Height: 1.57 m Weight: 77.3 kg Allergies Allergy/AdvReac Type Severity Reaction Status Date / Time iohexol Allergy Mild Hives Verified 05/08/22 09:02 [From CONTRAST - CT, XRAY] acetaminophen Allergy Hives Verified 05/08/22 09:02 banana Allergy Unknown Verified 05/08/22 09:02 prednisone Allergy Rash Verified 05/08/22 09:02 Home Medications Medication Instructions Recorded Confirmed Type calcium carbonate 200 mg calcium 200 tablet PO QID PRN other 07/13/21 05/08/22 History (500 mg) chewable tablet haloperidol 2 mg tablet 2 tablet TID 07/13/21 05/08/22 History milnacipran 12.5 mg (5)-25 See Rx Instructions PO PER PKG DIR 11/04/21 05/08/22 Rx mg(8)-50mg(42) tablets in a dose [facility] sertraline 25 mg tablet 25 mg PO DAILY 03/17/22 05/08/22 History pantoprazole 40 mg tablet,delayed 40 mg PO BID 1 month #60 tabs 04/27/22 05/08/22 Rx release clonazepam 0.5 mg tablet 0.5 mg PO BID PRN Anxiety 05/08/22 05/08/22 History hydroxyzine HCl 50 mg tablet 50 mg PO Q6H PRN Anxiety 05/08/22 05/08/22 History pregabalin 150 mg capsule 150 mg PO BID #60 caps 05/08/22 Rx Patient hx anesthesia problems: none Family hx anesthesia problems: none Results Review: All pre-operative results and documents have been reviewed as part of the pre-operative evaluation. COUNT INCLUDES THE [facility] Past Medical History Medical History (Updated 05/17/22 @ 12:28 by Vicente Peralta MD) Arthralgia Bipolar disorder BMI 27.0-27.9,adult BMI 29.0-29.9,adult BRBPR (bright red blood per rectum) Family hx of colon cancer Fibromyalgia Healthy adult Nausea & vomiting Obesity Schizoaffective disorder Schizophrenia Sciatica of left side Smoker Tobacco abuse Surgical History Surgical History H/O tubal ligation History of endometrial ablation Family History Family History Mother Breast cancer Depression Carcinoma of colon Father Unknown family medical history Sibling No problems noted. Social History Social History Smoking packs per day: 0.25 Smoking cigarettes per day: 5.0 Years smoked: 1 Smoking pack-years: 0.25 Smoking status: Former smoker Tobacco type: cigarettes Second hand tobacco smoke exposure: Yes Alcohol intake: current Drinks per week: 20 Substance use: current Substance use type: marijuana Last use: 2x weekly Living arrangements: alone Occupation/Education: occupation Additional occupation/education comments: [employer] Gender identity (if verbalized by the patient): Female Sexual Orientation (if Verbalized by the Patient): Straight or Heterosexual Spiritual care concerns: No Agree to blood products: Yes Anes - Eval Final PreProcedure Day of Procedure 05/17/22 12:27 Patient weight: obese Heart: regular rate and rhythm Lungs: clear to auscultation Airway: Mallampati scale class II Neurological: alert and oriented ASA classification: III Emergent: no Anesthetic plan: proceed Anesthesia type and monitoring: general GIVS and standard monitoring Results Review: All pre-operative results and documents have been reviewed as part of the pre-operative evaluation. Informed Consent: The patient's anesthetic plan and its attendant risks and benefits were discussed with the patient/family/POA. Questions were solicited and answers provided to the satisfaction of the patient/family/POA.
[2022-05-17 12:38] VITALS: BP 114/82; PULSE 86; RESP 20; TEMP 36.6; O2SAT 100; BMI 29.5
[2022-05-17] MEDS: LACTATED RINGERS 1,000 ML 150 ML IV CONT (12:47)
--- NOTE | 2022-05-17 12:57 | WPDHPUPDATE1 ---
History and Physical Update Update Date/Time: 05/17/22 12:57 History and Physical has been reviewed, including an updated exam of the patient. There are NO changes in the patient's condition. Risks, benefits, and alternatives have been discussed and questions answered. Patient agrees to proceed with procedure.
--- NOTE | 2022-05-17 13:30 | SUR.OPER ---
EGD started at 1305 and ended at 1310. Colonoscopy started at 1316 and ended at 1327.
[2022-05-17 13:32] VITALS: BP 116/74; PULSE 75; RESP 12; O2SAT 99
[2022-05-17 13:42] VITALS: BP 121/84; PULSE 97; RESP 17; O2SAT 100
[2022-05-17 13:52] VITALS: BP 122/85; PULSE 74; RESP 20; O2SAT 100
== END 2022-05-17 14:04 | disposition home or self-care (01) ==
PROVIDERS: PCP Family Medicine; Visit Provider Internal Medicine Gastroenterology
PROC: 0DJ08ZZ Inspection of Upper Intestinal Tract, Via Natural or Artificial Opening Endoscopic (ICD-10-PCS; CPT 43235; principal; 2022-05-17 14:15)
DX: K92.1 Melena (principal); D12.3 Benign neoplasm of transverse colon; K64.8 Other hemorrhoids; K31.4 Gastric diverticulum; K29.50 Unspecified chronic gastritis without bleeding; Z80.0 Family history of malignant neoplasm of digestive organs; M79.7 Fibromyalgia; F25.9 Schizoaffective disorder, unspecified; F31.9 Bipolar disorder, unspecified; Z87.891 Personal history of nicotine dependence; F12.90 Cannabis use, unspecified, uncomplicated; E66.9 Obesity, unspecified; Z68.29 Body mass index [BMI] 29.0-29.9, adult
CPT/HCPCS: 45385; 43239; 88305; 88342; J2001; J2704; J7120

== ENCOUNTER 2022-09-24 14:25 | Emergency (ER) | payer OTHER, SELFPAY ==
[2022-09-24 14:34] VITALS: BP 129/89; PULSE 102; RESP 16; TEMP 36.6; O2SAT 99
--- NOTE | 2022-09-24 14:48 | ED.NAVMDI ---
HPI - Nausea/Vomiting/Diarrhea General Chief complaint: Nausea/Vomiting/Diarrhea Stated complaint: Vomiting Time Seen by Provider: 09/24/22 14:26 Source: patient Mode of arrival: ambulatory Limitations: no limitations History of Present Illness HPI Narrative: 37-year-old female presents to [facility] with complaints of nausea and vomiting yesterday which lasts approximately 3 hours. Patient states my: Feels like it is burning when I was vomiting. Patient reports that burning sensation has since resolved. Patient reports that the vomiting is also resolved she continues with slight nausea. Patient reports that she is needing a work excuse return back to work tomorrow. Patient reports that her mother and also recent similar symptoms. Patient denies chance of as she has had a tubal ligation in the past. Patient reports that she is able to eat pancakes and macaroni and cheese today with no difficulty MD elicited complaint: nausea and vomiting Onset (ago): day(s) (1) Associated nausea: Yes Exacerbating factors: none Relieving factors: none Context: sick contacts Associated symptoms: denies other symptoms Related Data Home Medications Medication Instructions Recorded Confirmed haloperidol 2 mg tablet 5 mg PO HS 07/13/21 09/24/22 sertraline 25 mg tablet 50 mg PO DAILY 03/17/22 09/24/22 clonazepam 0.5 mg tablet 0.5 mg PO BID PRN Anxiety 05/08/22 09/24/22 hydroxyzine HCl 50 mg tablet 50 mg PO Q6H PRN Anxiety 05/08/22 09/24/22 Allergies Allergy/AdvReac Type Severity Reaction Status Date / Time acetaminophen AdvReac Mild Hives Verified 09/24/22 14:28 banana AdvReac Mild Hives Verified 09/24/22 14:28 iohexol AdvReac Mild Hives Verified 09/24/22 14:28 [From CONTRAST - CT, XRAY] prednisone AdvReac Mild Rash Verified 09/24/22 14:28 Review of Systems Constitutional: Constitutional: Denies chills, Denies fatigue, Denies fever(s) and Denies weakness ENT: Denies vertigo and Denies dizziness Cardiovascular: Cardiovascular: Denies chest pain Respiratory: Respiratory: Denies cough Gastrointestinal: Gastrointestinal: Reports abdominal pain, Denies diarrhea, Reports nausea and Reports vomiting Integumentary/Breasts: Skin/Breast: Denies erythema and Denies rash Neurologic: Denies dizziness and Denies syncope [facility] Past Medical History Medical History Arthralgia Bipolar disorder BMI 27.0-27.9,adult BMI 29.0-29.9,adult BRBPR (bright red blood per rectum) Family hx of colon cancer Fibromyalgia Healthy adult Nausea & vomiting Obesity Schizoaffective disorder Schizophrenia Sciatica of left side Smoker Tobacco abuse Surgical History Surgical History H/O tubal ligation History of endometrial ablation Family History Family History Mother Breast cancer Depression Carcinoma of colon Father Unknown family medical history Sibling No problems noted. Social History Social History Smoking packs per day: 0.25 Smoking cigarettes per day: 5.0 Years smoked: 1 Smoking pack-years: 0.25 Smoking status: Former smoker Tobacco type: cigarettes Second hand tobacco smoke exposure: Yes Alcohol intake: current Drinks per week: 20 Substance use: current Substance use type: marijuana Last use: 2x weekly Living arrangements: alone Occupation/Education: occupation Additional occupation/education comments: [employer] Gender identity (if verbalized by the patient): Female Sexual Orientation (if Verbalized by the Patient): Straight or Heterosexual Spiritual care concerns: No Agree to blood products: Yes Comments At time of signature, I agree with nursing past medical, surgical, social and family history. There is no relevant family history pertinent to
== END 2022-09-24 14:55 | disposition home or self-care (01) ==
PROVIDERS: Emergency Provider Nurse Practitioner Family; PCP Family Medicine
DX: R11.2 Nausea with vomiting, unspecified (principal); Z87.891 Personal history of nicotine dependence; F12.90 Cannabis use, unspecified, uncomplicated; M79.7 Fibromyalgia; F20.9 Schizophrenia, unspecified
CPT/HCPCS: 99213; G0463

== ENCOUNTER 2023-01-09 09:47 | Outpatient (CLI) | payer OTHER, SELFPAY ==
[2023-01-09 10:29] LABS: Alanine Aminotransferase 31 U/L (6-35); Alkaline Phosphatase 93 U/L (38-126); Anion Gap 11 mmol/L (8-16); Aspartate Amino Transferase 34 U/L (14-36); Bilirubin,Total 0.8 mg/dL (0.2-1.3); Blood Urea Nitrogen 14 mg/dL (7-17); Calcium 9.4 mg/dL (8.4-10.2); Carbon Dioxide 25 mmol/L (22-30); Chloride 103 mmol/L (98-107); Estimated Glomerular Filt Rate > 60; Glucose 98 mg/dL (65-110); Magnesium 1.8 mg/dL (1.6-2.3); Potassium 4.2 mmol/L (3.4-5.0); Sodium 139 mmol/L (137-145)
[2023-01-09 10:31] LABS: Rheumatoid Factor < 12.0 IU/ML (<12)
[2023-01-09 10:52] LABS: Basophils Percent Auto 0.4 % (0.2-1.2); Eosinophils Absolute Auto 0.1 K/mm3 (0-0.3); Hematocrit 47.6 % (37.0-47.0); Hemoglobin 15.5 g/dL (12.0-15.0); Immature Granulocyte Absolute 0.01 K/mm3 (0.00-0.031); Immature Granulocyte Percent A 0.1 % (0-0.5); Lymphocytes Absolute Auto 2.07 K/mm3 (0.9-3.2); Lymphocytes Percent Auto 26.3 % (18.3-44.2); Mean Corpuscular HGB Conc 32.6 g/dl (32-36); Mean Corpuscular Hemoglobin 28.9 pg (26-34); Mean Corpuscular Volume 88.6 fl (80-100); Mean Platelet Volume 9.6 fl (7.4-10.4); Monocytes Absolute Auto 0.5 K/mm3 (0.1-0.6); Monocytes Percent Auto 6.9 % (2.6-8.5); Neutrophils Absolute Auto 5.2 K/mm3 (1.3-6.7); Neutrophils Percent Auto 65.3 % (45.5-73.1); Platelet Count Result 315 k/mm3 (150-375); Red Blood Count 5.37 M/mm3 (4.2-5.4); Red Cell Distribution Width 13.5 % (11.5-14.5); White Blood Count 7.9 K/mm3 (4.5-10.0)
[2023-01-11 19:33] LABS: ANA Cascade Screen Negative (Negative)
== END 2023-01-09 09:48 | disposition home or self-care (01) ==
PROVIDERS: PCP Family Medicine; Visit Provider Physician Assistant Medical
DX: M25.50 Pain in unspecified joint (principal); M79.7 Fibromyalgia
CPT/HCPCS: 36415; 80053; 83735; 84443; 85025; 86038; 86225; 86235; 86364; 86430

== ENCOUNTER 2023-01-24 09:00 | Outpatient (CLI) | payer OTHER, SELFPAY ==
--- NOTE | 2023-01-24 11:30 | NEURO_ITS ---
Impression: # Complains of paresthesia of lower extremities. # Normal motor and sensory Nerve Conduction Study. # Normal needle/EMG exam. # Clinical correlation recommended. Nerve Conduction Studies Anti Sensory Summary Table Stim Site NR Peak (ms) P-T Amp (?V) Site1 Site2 Delta-P (ms) Dist (cm) Gio (m/s) Left Saphenous Anti Sensory (Ant Med Mall) 14cm 3.5 74.9 14cm Ant Med Mall 3.5 0.0 Right Saphenous Anti Sensory (Ant Med Mall) 14cm 3.0 28.5 14cm Ant Med Mall 3.0 0.0 Left Sup Fibular Anti Sensory (Ant Lat Mall) 14 cm 3.0 16.2 14 cm Ant Lat Mall 3.0 16.0 53 Right Sup Fibular Anti Sensory (Ant Lat Mall) 14 cm 3.2 18.1 14 cm Ant Lat Mall 3.2 16.0 50 Left Sural Anti Sensory (Lat Mall) Calf 3.7 13.2 Calf Lat Mall 3.7 16.0 43 Right Sural Anti Sensory (Lat Mall) Calf 3.2 18.2 Calf Lat Mall 3.2 16.0 50 Motor Summary Table Stim Site NR Onset (ms) O-P Amp (mV) Site1 Site2 Delta-0 (ms) Dist (cm) Gio (m/s) Left Lateral Plantar Motor (ADM) Med Mall 3.7 4.5 Right Lateral Plantar Motor (ADM) Med Mall 3.8 3.6 Left Peroneal Motor (Vastus Med) Ankle 3.4 1.9 Popit Ankle 7.6 38.0 50 Popit 11.0 1.4 Right Peroneal Motor (Vastus Med) Ankle 3.5 3.2 Popit Ankle 7.6 38.0 50 Popit 11.1 2.6 Left Tibial Motor (Abd Rosenbaum Brev) Ankle 3.8 2.4 Knee Ankle 8.0 40.0 50 Knee 11.8 2.1 Right Tibial Motor (Abd Rosenbaum Brev) Ankle 3.7 3.4 Knee Ankle 7.7 39.0 51 Knee 11.4 1.5 F Wave Studies NR F-Lat (ms) L-R F-Lat (ms) Left Peroneal (Mrkrs) (EDB) 48.42 1.29 Right Peroneal (Mrkrs) (EDB) 49.71 1.29 Left Tibial (Mrkrs) (Abd Hallucis) 47.10 0.56 Right Tibial (Mrkrs) (Abd Hallucis) 47.66 0.56 EMG Side Muscle Nerve Root Ins Act Fibs Amp Dur Recrt Comment Right AntTibialis Dp Br Fibular L4-5 Nml Nml Nml Nml Nml Right Gastroc Tibial S1-2 Nml Nml Nml Nml Nml Right Fibularis Long Sup Br Fibular L5-S1 Nml Nml Nml Nml Nml Right Flex Dig Long Tibial L5-S2 Nml Nml Nml Nml Nml Right Ext Dig Brev Dp Br Fibular L5, S1 Nml Nml Nml Nml Nml Left AntTibialis Dp Br Fibular L4-5 Nml Nml Nml Nml Nml Left Gastroc Tibial S1-2 Nml Nml Nml Nml Nml Left Fibularis Long Sup Br Fibular L5-S1 Nml Nml Nml Nml Nml Left Flex Dig Long Tibial L5-S2 Nml Nml Nml Nml Nml Left Ext Dig Brev Dp Br Fibular L5, S1 Nml Nml Nml Nml Nml MTDD
== END 2023-01-24 09:01 | disposition home or self-care (01) ==
LOC: ANHNEURO 09:01
PROVIDERS: PCP Family Medicine; Visit Provider Physician Assistant Medical
DX: R71.8 Other abnormality of red blood cells (principal); R20.0 Anesthesia of skin
CPT/HCPCS: 36415; 82607; 95886; 95912

== ENCOUNTER 2023-03-30 05:46 | Day surgery (SDC) | payer OTHER, SELFPAY ==
[2023-03-30] VITALS (15 sets, daily range): BP systolic 108–135; BP diastolic 68–98; PULSE 71–105; RESP 12–20; TEMP 36.4–36.9; O2SAT 94–100
--- NOTE | ~2023-03-30 | CT_ITS ---
Non-contrast CT scan of the Abdomen and Pelvis Clinical indication: Abdominal pain Technique: 2.5 mm axial scans were obtained through the abdomen and pelvis without intravenous or or al contrast. Dose reduction technique was used on this scan by utilizing automated exposure control a nd iterative reconstruction technique. The dose-length product (DLP) was 627.74 mGy-cm. COMPARISON: 10/22/2020 Findings: Images through the lung bases reveal no abnormalities. 2 mm nonobstructing right renal stone noted. Punctate nonobstructing left renal stones are present. N o ureteral stone or hydronephrosis on either side. The liver, spleen, pancreas, gallbladder, and adrenals appear normal. There is no aortic aneurysm. There is no evidence of bowel obstruction. Appendix is dilated to 9-10 mm, without significant periap pendiceal inflammatory change. Images through the pelvis were performed. There is no evidence of ascites or lymphadenopathy. Urinary bladder unremarkable. No pelvic mass seen. No ascites. Impression: Mildly dilated appendix, without significant inflammatory change. Early acute appendicitis is a consi deration in the appropriate clinical setting. Correlate clinically. Small bilateral nonobstructing renal stones. Reviewed, dictated and finalized at [facility]. [employer] Impression: Mildly dilated appendix, without significant inflammatory change. Early acute a ppendicitis is a consideration in the appropriate clinical setting. Correlate c linically. Small bilateral nonobstructing renal stones.
[2023-03-30 06:18] LABS: Basophils Percent Auto 0.2 % (0.2-1.2); Eosinophils Absolute Auto 0.2 K/mm3 (0-0.3); Eosinophils Percent Auto 1.2 % (0-4.4); Hematocrit 45.7 % (37.0-47.0); Hemoglobin 15.1 g/dL (12.0-15.0); Immature Granulocyte Absolute 0.05 K/mm3 (0.00-0.031); Immature Granulocyte Percent A 0.4 % (0-0.5); Lymphocytes Absolute Auto 1.94 K/mm3 (0.9-3.2); Mean Corpuscular Hemoglobin 29.4 pg (26-34); Mean Corpuscular Volume 89.1 fl (80-100); Mean Platelet Volume 9.4 fl (7.4-10.4); Monocytes Absolute Auto 0.7 K/mm3 (0.1-0.6); Monocytes Percent Auto 5.3 % (2.6-8.5); Neutrophils Absolute Auto 10.9 K/mm3 (1.3-6.7); Neutrophils Percent Auto 78.9 % (45.5-73.1); Platelet Count Result 324 k/mm3 (150-375); Red Blood Count 5.13 M/mm3 (4.2-5.4); Red Cell Distribution Width 13.6 % (11.5-14.5); White Blood Count 13.9 K/mm3 (4.5-10.0)
[2023-03-30] MEDS: ONDANSETRON INJ 4 MG/2 ML VIAL IV PUSH (06:24)
[2023-03-30] MEDS: SODIUM CHLORIDE 0.9% IV 1,000 ML 999 ML IV CONT (06:24)
[2023-03-30 06:27] LABS: Bacteria Urine Rare /hpf; RBC Urine 0-2 /hpf (0-2); Squamous Epithelial Cell Urine Moderate /hpf (Few)
[2023-03-30 06:29] LABS: Alanine Aminotransferase 40 U/L (6-35); Albumin Level 4.3 g/dL (3.5-5.1); Alkaline Phosphatase 120 U/L (38-126); Anion Gap 8 mmol/L (8-16); Aspartate Amino Transferase 35 U/L (14-36); Bilirubin,Total 0.8 mg/dL (0.2-1.3); Blood Urea Nitrogen 7 mg/dL (7-17); Calcium 9.7 mg/dL (8.4-10.2); Carbon Dioxide 22 mmol/L (22-30); Chloride 106 mmol/L (98-107); Estimated CRCL calculation 98 ml/min; Estimated Glomerular Filt Rate > 60; Glucose 103 mg/dL (65-110); Lipase 61 U/L (23-300); Potassium 4.1 mmol/L (3.4-5.0); Sodium 136 mmol/L (137-145)
[2023-03-30 06:36] LABS: Appearance Urine Cloudy (Clear); Bilirubin Urine Negative (Negative); Blood Urine Negative (Negative); Color Urine Yellow (Yellow); Glucose Urine UA Negative (Negative); Ketones Urine Trace mg/dL (Negative); Leukocyte Esterase Ur Negative LEU/UL (Negative); Nitrate Urine Negative (Negative); Protein Urine Negative (Negative); Specific Grav Ur 1.021 (1.001-1.035); pH Urine 5.5 (5.0-9.0)
[2023-03-30 06:37] LABS: Add Urine Microscopic? YES
[2023-03-30 06:40] LABS: CRP < 0.5 mg/dL (<1.0); Magnesium 1.9 mg/dL (1.6-2.3)
[2023-03-30 06:41] LABS: Lactic Acid Reflex 1.5 mmol/L (0.7-2.0)
[2023-03-30 06:48] LABS: Partial Thromboplastin Time 27.7 SECONDS (22.3-36.8); Prothrombin Time 13.9 Seconds (11.1-14.7)
[2023-03-30 07:11] LABS: Influenza A QL RT-PCR Negative (Negative); Influenza B QL RT-PCR Negative (Negative); RSV RNA, RT-PCR Negative (Negative); SARS-CoV-2 RNA PCR Negative (Negative)
[2023-03-30] MEDS: MORPHINE SULFATE (*CRX) 4 MG/ML INJ IV PUSH (07:41)
--- NOTE | 2023-03-30 07:53 | ED.ABDPAIN ---
HPI - Abdominal Pain General Chief Complaint: Abdominal Pain Stated Complaint: abd pain Time Seen by Provider: 03/30/23 07:00 History of Present Illness HPI narrative: Patient is a 37-year-old female who presents ER with abdominal pain. Sudden onset this morning. Bloating and burning. Makes her nauseous. It is in the periumbilical area but going down into lower abdomen. No fevers or chills or sweats. No alleviating factors. Related Data Home Medications Medication Instructions Recorded Confirmed haloperidol 2 mg tablet 5 mg PO HS 07/13/21 12/20/22 clonazepam 0.5 mg tablet 0.5 mg PO BID PRN Anxiety 05/08/22 12/20/22 cariprazine 4.5 mg capsule 4.5 mg PO DAILY 12/20/22 12/20/22 (Vraylar) Allergies Allergy/AdvReac Type Severity Reaction Status Date / Time cefuroxime Allergy Unknown Verified 01/18/23 12:09 Iodinated Contrast Media Allergy Unknown Verified 01/18/23 12:09 acetaminophen AdvReac Mild Hives Verified 01/18/23 12:09 banana AdvReac Mild Hives Verified 01/18/23 12:09 iohexol AdvReac Mild Hives Verified 01/18/23 12:09 [From CONTRAST - CT, XRAY] prednisone AdvReac Mild Rash Verified 01/18/23 12:09 Review of Systems Review of Systems: All systems reviewed & are unremarkable except as noted in HPI and below Constitutional: Constitutional: Reports no additional constitutional complaints Cardiovascular: Cardiovascular: Reports no additional cardiovascular complaints Respiratory: Respiratory: Reports no additional respiratory complaints Gastrointestinal: Gastrointestinal: Reports abdominal pain, Reports bloating, Reports nausea and Denies vomiting Genitourinary: Genitourinary: Reports no additional female genitourinary complaints [facility] Past Medical History Medical History Arthralgia Bipolar disorder BMI 29.0-29.9,adult BMI 30.0-30.9,adult BRBPR (bright red blood per rectum) Family hx of colon cancer Fibromyalgia Healthy adult Nausea & vomiting Obesity Schizoaffective disorder Schizophrenia Sciatica of left side Smoker Tobacco abuse Surgical History Surgical History H/O tubal ligation History of endometrial ablation Family History Family History Mother Breast cancer Depression Carcinoma of colon Father Unknown family medical history Sibling No problems noted. Social History Social History (System 01/18/23 @ 12:09 by Xin Fierro) Smoking packs per day: 0.25 Smoking cigarettes per day: 5.0 Years smoked: 1 Smoking pack-years: 0.25 Smoking status: Current every day smoker Tobacco type: e-cigarettes/vaping Second hand tobacco smoke exposure: Yes Alcohol intake: former Drinks per week: 20 Substance use: former Substance use type: marijuana Last use: 2x weekly Living arrangements: alone Occupation/Education: occupation Additional occupation/education comments: [employer] Gender identity (if verbalized by the patient): Female Sexual Orientation (if Verbalized by the Patient): Straight or Heterosexual Spiritual care concerns: No Agree to blood products: Yes Exam Narrative: GENERAL: Well-appearing, well-nourished, and in no acute distress. HEAD: Normocephalic, atraumatic. ENT: Mucous membranes moist. NECK: Supple. CHEST: Clear to auscultation. No respiratory distress. HEART: Regular rate and rhythm. Normal peripheral pulses. ABDOMEN: Soft, TTP BLQ R>L w/o guarding, nondistended. EXTREMITIES: Normal range of motion. No edema. SKIN: Warm, dry, no rash. NEURO: Alert and oriented x3. PSYCH: Normal mood and affect. Course Course Emergency Course: -Course: Patient informed results. Dr. Best contacted. Co-morbidities complicating care: Obesity -External Chart Review: none -Hx from independent Sources: patient -Independent interpretation of stud
[2023-03-30] MEDS: metroNIDAZOLE 500 MG/ISO 100ML 500 MG/100 ML BAG 100 MG IVPB (08:24)
[2023-03-30] MEDS: levoFLOXacin 750 MG/D5W 150 ML 750 MG/150 ML BAG 100 MG IVPB (09:26)
--- NOTE | 2023-03-30 10:57 | PM.IMHP ---
H&P: HPI History of Present Illness Date/Time: 03/30/23 10:57 Chief Complaint: Acute appendicitis Narrative: The patient is a 37-year-old female presenting to the emergency department complaining of lower abdominal pain since this morning. The patient reports the pain was more diffuse initially in the periumbilical area. The patient reports now the pain is more in her right lower quadrant. The patient reports the pain is sharp constant, stabbing, constant. She denies previous episodes. She reports associated nausea, bloating. Workup in the emergency department, including imaging, is significant for early acute appendicitis. Review of Systems Review of Systems: All systems reviewed & are unremarkable except as noted in HPI and below PMFSH Past Medical History Medical History Arthralgia Bipolar disorder BMI 29.0-29.9,adult BMI 30.0-30.9,adult BRBPR (bright red blood per rectum) Family hx of colon cancer Fibromyalgia Healthy adult Nausea & vomiting Obesity Schizoaffective disorder Schizophrenia Sciatica of left side Smoker Tobacco abuse Surgical History Surgical History H/O tubal ligation History of endometrial ablation Family History Family History Mother Breast cancer Depression Carcinoma of colon Father Unknown family medical history Sibling No problems noted. Mother Family history of malignant neoplasm of breast in first degree relative, Onset Age: 51 Other Diabetes mellitus Family history of cardiovascular disease Family history of malignant neoplasm of breast Family history of malignant neoplasm of ovary Social History Social History Smoking packs per day: 0.25 Smoking cigarettes per day: 5.0 Years smoked: 1 Smoking pack-years: 0.25 Smoking status: Current every day smoker Tobacco type: e-cigarettes/vaping Second hand tobacco smoke exposure: Yes Alcohol intake: former Drinks per week: 20 Substance use: former Substance use type: marijuana Last use: 2x weekly Living arrangements: alone Occupation/Education: occupation Additional occupation/education comments: [employer] Gender identity (if verbalized by the patient): Female Sexual Orientation (if Verbalized by the Patient): Straight or Heterosexual Spiritual care concerns: No Agree to blood products: Yes Meds Home Medications and Allergies Home Medications Medication Instructions Recorded Confirmed Type haloperidol 2 mg tablet 5 mg PO HS 07/13/21 12/20/22 History pantoprazole 40 mg tablet,delayed 40 mg PO BID 1 month #60 tabs 04/27/22 12/20/22 Rx release clonazepam 0.5 mg tablet 0.5 mg PO BID PRN Anxiety 05/08/22 12/20/22 History cariprazine 4.5 mg capsule 4.5 mg PO DAILY 12/20/22 12/20/22 History (Vraylar) pregabalin 150 mg capsule 150 mg PO BID #60 caps 03/06/23 Rx Allergies Allergy/AdvReac Type Severity Reaction Status Date / Time cefuroxime Allergy Unknown Verified 01/18/23 12:09 Iodinated Contrast Media Allergy Unknown Verified 01/18/23 12:09 acetaminophen AdvReac Mild Hives Verified 01/18/23 12:09 banana AdvReac Mild Hives Verified 01/18/23 12:09 iohexol AdvReac Mild Hives Verified 01/18/23 12:09 [From CONTRAST - CT, XRAY] prednisone AdvReac Mild Rash Verified 01/18/23 12:09 Vital Signs Vital Signs - 24 hr 03/30/23 05:49 03/30/23 07:07 03/30/23 07:47 Temperature 36.9 C Pulse Rate 93 74 86 Respiratory Rate 20 15 15 Blood Pressure 135/98 H 119/88 115/73 Pulse Oximetry 100 100 100 Oxygen Delivery Room Air 03/30/23 08:24 03/30/23 09:26 Temperature Pulse Rate 97 93 Respiratory Rate 16 16 Blood Pressure 120/73 117/83 Pulse Oximetry 98 98 Oxygen Delivery Exam Const: General: cooperative, no acute distre
--- NOTE | 2023-03-30 11:02 | WPDHPUPDATE1 ---
History and Physical Update Update Date/Time: 03/30/23 11:02 History and Physical has been reviewed, including an updated exam of the patient. There are NO changes in the patient's condition. Risks, benefits, and alternatives have been discussed and questions answered. Patient agrees to proceed with procedure.
--- NOTE | 2023-03-30 11:10 | WPDANESEPPF ---
Anes - Initial Pre Proc Eval Procedure: Operation Date: 03/30/23 12:00 Proposed Procedures p Laparoscopic Appendectomy - Ania Best MD Date/Time: 03/30/23 11:10 Surgeon: Ania Best MD Pre Op Diagnosis: abd pain Patient Data Age: 37 Gender: F Height: 1.6 m Weight: 81.65 kg Last Vital Signs Temp 98.4 F 03/30/23 05:49 Pulse 93 03/30/23 09:26 Resp 16 03/30/23 09:26 BP 117/83 03/30/23 09:26 Pulse Ox 98 03/30/23 09:26 O2 Del Method Room Air 03/30/23 05:49 Allergies Allergy/AdvReac Type Severity Reaction Status Date / Time cefuroxime Allergy Unknown Rash Verified 03/30/23 11:08 Iodinated Contrast Media Allergy Unknown Hives Verified 03/30/23 11:08 acetaminophen AdvReac Mild Hives Verified 03/30/23 11:08 banana AdvReac Mild Hives Verified 03/30/23 11:08 iohexol AdvReac Mild Hives Verified 03/30/23 11:08 [From CONTRAST - CT, XRAY] prednisone AdvReac Mild Rash Verified 03/30/23 11:08 Home Medications Medication Instructions Recorded Confirmed Type pregabalin 150 mg capsule 150 mg PO BID #60 caps 03/06/23 Rx Laboratory Tests 03/30/23 03/30/23 03/30/23 06:05 06:14 06:25 WBC 13.9 H K/mm3 (4.5-10.0) RBC 5.13 M/mm3 (4.2-5.4) Hgb 15.1 H g/dL (12.0-15.0) Hct 45.7 % (37.0-47.0) MCV 89.1 fl (80-100) MCH 29.4 pg (26-34) MCHC 33.0 g/dl (32-36) RDW 13.6 % (11.5-14.5) Plt Count 324 k/mm3 (150-375) MPV 9.4 fl (7.4-10.4) Immature Gran % (Auto) 0.4 % (0-0.5) Neut % (Auto) 78.9 H % (45.5-73.1) Lymph % (Auto) 14.0 L % (18.3-44.2) [place] % (Auto) 5.3 % (2.6-8.5) Eos % (Auto) 1.2 % (0-4.4) Baso % (Auto) 0.2 % (0.2-1.2) Lymph # (Auto) 1.94 K/mm3 (0.9-3.2) [place] # (Auto) 0.7 H K/mm3 (0.1-0.6) Eos # (Auto) 0.2 K/mm3 (0-0.3) Baso # (Auto) 0.0 K/mm3 (0.0-0.1) Abs Immat Gran (auto) 0.05 H K/mm3 (0.00-0.031) Absolute Neuts (auto) 10.9 H K/mm3 (1.3-6.7) Absolute Nucleated RBC 0.0 K/mm3 (0.0-0.012) Nucleated RBC % 0.0 % (0.0-0.2) PT 13.9 Seconds (11.1-14.7) INR 1.0 APTT 27.7 SECONDS (22.3-36.8) Sodium 136 L mmol/L (137-145) Potassium 4.1 mmol/L (3.4-5.0) Chloride 106 mmol/L (98-107) Carbon Dioxide 22 mmol/L (22-30) Anion Gap 8 mmol/L (8-16) BUN 7 D mg/dL (7-17) Creatinine 0.70 mg/dL (0.7-1.0) Estim Creat Clear Calc 98 ml/min Estimated GFR > 60 (59 - ) Glucose 103 mg/dL (65-110) Lactic Acid 1.5 mmol/L (0.7-2.0) Calcium 9.7 mg/dL (8.4-10.2) Magnesium 1.9 mg/dL (1.6-2.3) Total Bilirubin 0.8 mg/dL (0.2-1.3) AST 35 U/L (14-36) ALT 40 H U/L (6-35) Alkaline Phosphatase 120 U/L (38-126) C-Reactive Protein < 0.5 mg/dL (<1.0) Total Protein 8.0 g/dL (6.3-8.2) Albumin 4.3 g/dL (3.5-5.1) Lipase 61 U/L (23-300) Urine Color Yellow (Yellow) Urine Appearance Cloudy H (Clear) Urine pH 5.5 (5.0-9.0) Ur Specific Schwertner 1.021 (1.001-1.035) Urine Protein Negative mg/dL (Negative) Urine Glucose (UA) Negative mg/dL (Negative) Urine Ketones Trace H mg/dL (Negative) Ur Blood (Man) Negative (Negative) Urine Nitrate Negative (Negative) Urine Bilirubin Negative (Negative) Urine Urobilinogen 1.0 mg/dL (<2.0) Leukocyte Esterase Rfl Negative HANNA/UL (Negative) Urine RBC 0-2 /hpf (0-2) Urine WBC 6-10 H /hpf Ur Squamous Epith Cells Moderate /hpf (Few) Urine Bacteria Rare /h
[2023-03-30] MEDS: LACTATED RINGERS 1,000 ML 30 ML IV CONT ×2 (11:13→12:53)
[2023-03-30] MEDS: BUPIVACAINE/EPINEPHRINE 0.5% 30 ML VIAL INFILTRATE (12:20)
--- NOTE | 2023-03-30 12:53 | W.PM.PROC2 ---
Procedure Note - Detailed Date of Procedure 03/30/23 Pre-op Diagnosis acute appendicitis Post-op Diagnosis Same Procedure Performed laparoscopic appendectomy Surgeon Ania Best MD Anesthesia General Indications 37-year-old female presenting to the emergency department with acute appendicitis Findings acute appendicitis no evidence of perforation Description of Procedure The patient was taken to the operating room and placed in the supine position. After adequate induction of general anesthesia, the patient was prepped and draped in the normal sterile fashion. A time-out was then done to verify the patient's identity, as well as the procedure being performed. I began by making a 5 mm incision in the infraumbilical region, through this a Veress needle was placed in the peritoneal cavity. CO2 gas was then insufflated and after adequate pneumoperitoneum was achieved the Veress needle was removed. Then placed a 5 mm Optiview trocar under direct visualization into the peritoneal cavity. I then insufflated through this trocar site and the endoscope was placed into the trocar. Under direct visualization, placed 2 further 5 mm suprapubic port as well as an additional 12 mm port in the left lower abdomen. At this point identified the cecum, I retracted the cecum both medially and superiorly allowing me to expose the appendix. The appendix was noted to be moderately dilated and inflamed. I then was able to locate the base of the appendix with the cecum. I created a window with the [place] dissector between the appendix itself and the mesoappendix. I then transected the mesoappendix with a white vascular staple load. The Endo-CATHIE was then reloaded with a blue staple load and I transected the base of the appendix. Once the specimen was completely detached, an endo-pouch was placed into the 12 mm port site and the specimen was removed through the endo-pouch. The appendiceal specimen will be sent to pathology for further review. I then copiously irrigated the right lower quadrant. Hemostasis was noted at both staple lines no other pathology was seen in this area. I then moved the camera to the suprapubic port to check our its port of entry. No iatrogenic injury or other pathology was noted in the upper abdomen. I then closed the 12 mm port site with a Zechariah code and 0 Vicryl suture under direct visualization. At this point, the abdomen was desufflated and all ports were removed. All port sites were closed with 4 Monocryl subcuticular suture. Dermabond was placed on all wounds. The patient tolerated the procedure well and was extubated in the operating room postop. He will be sent to the recovery room in stable condition. Estimated Blood Loss 10 Drains No Packing No Pathology Yes Complications No immediate complications Condition Stable Disposition PACU [facility] Billing Surgery - Charge Forward: Surgery Billing
[2023-03-30] MEDS: fentaNYL CITRATE INJ (*CRX) 100 MCG/2 ML VIAL 25 MCG IV PUSH ×6 (12:57→13:32)
[2023-03-30] MEDS: oxyCODONE HCL (*CRX) 5 MG TAB IR PO (14:35)
== END 2023-03-30 14:55 | disposition home or self-care (01) ==
LOC: ANHED 08:08 → ANHSURGERY 08:19
PROVIDERS: Student in an Organized Health Care Education/Training Program; Emergency Provider Emergency Medicine; PCP Family Medicine; Visit Provider Surgery
PROC: 0DTJ4ZZ Resection of Appendix, Percutaneous Endoscopic Approach (ICD-10-PCS; CPT 44970; principal; 2023-03-30 12:00)
DX: K35.80 Unspecified acute appendicitis (principal); N20.0 Calculus of kidney; F25.0 Schizoaffective disorder, bipolar type; F17.290 Nicotine dependence, other tobacco product, uncomplicated; E66.9 Obesity, unspecified; Z68.31 Body mass index [BMI] 31.0-31.9, adult; Z98.890 Other specified postprocedural states; Z80.0 Family history of malignant neoplasm of digestive organs; Z80.3 Family history of malignant neoplasm of breast; Z80.41 Family history of malignant neoplasm of ovary; Z82.49 Family history of ischemic heart disease and other diseases of the circulatory system
CPT/HCPCS: 44970; 36415; 74176; 80053; 81001; 81025; 83605; 83690; 83735; 85025; 85610; 85730; 86140; 87086; 87637; 88304; 96361; 96365; 96367; 96375; 99285; A9270; J0330; J1170; J1836; J1956; J2250; J2270; J2371; J2405; J2704; J3010; J7030; J7120

== ENCOUNTER 2023-04-08 11:27 | Emergency (ER) | payer OTHER, SELFPAY ==
--- NOTE | ~2023-04-08 | XR_ITS ---
EXAMINATION: XR chest 1V portable 04/08/2023 12:59 INDICATION: Shortness of breath PROCEDURE: AP portable chest COMPARISON: No prior studies for comparison. FINDINGS: The lungs are clear. The cardiomediastinal silhouette is within normal limits. There are no pleural effusions. There is no pneumothorax suspected. IMPRESSION: 1: NO ACUTE CARDIOPULMONARY DISEASE. Reviewed, dictated and finalized at location [facility]. [facility]
--- NOTE | ~2023-04-08 | CT_ITS ---
EXAMINATION: CT abdomen pelvis wo con DATE: 04/08/2023 13:29 INDICATION: Postop appendicitis. Abdominal distention. TECHNIQUE: Computed tomography (CT) of the abdomen and pelvis was performed without intravenous contr ast. The dose-length product was 563.66 mGy-cm. Automated exposure control and iterative reconstructi on technique were employed. COMPARISON: CT dated 03/30/2023. FINDINGS: Lung bases unremarkable. Heart size normal. No significant pleural or pericardial effusion. There are calcified granulomas of the spleen. The liver, pancreas, adrenal glands are unremarkable. There are nonobstructing bilateral renal stones. There is malrotation of the right kidney. Small fat- containing umbilical hernia. There are changes of recent appendectomy. There is a 4 cm cyst in the ri ght adnexa, likely ovarian. No free air or free fluid. No evidence for abscess. Gallbladder wall is m ildly thickened, although not well distended. Moderate spondylosis at L5-S1. IMPRESSION: 1. New 4 cm right adnexal cyst, likely ovarian. 2: Gallbladder wall thickening. No definite gallstones. 3: Nonobstructing bilateral nephrolithiasis. Reviewed, dictated and finalized at location [facility]. P[facility]
[2023-04-08 11:19] VITALS: BP 114/77; PULSE 69; RESP 16; TEMP 36.5; O2SAT 100
[2023-04-08 12:17] LABS: Basophils Percent Auto 0.3 % (0.2-1.2); Eosinophils Absolute Auto 0.2 K/mm3 (0-0.3); Eosinophils Percent Auto 1.7 % (0-4.4); Hematocrit 44.5 % (37.0-47.0); Hemoglobin 14.6 g/dL (12.0-15.0); Immature Granulocyte Absolute 0.02 K/mm3 (0.00-0.031); Immature Granulocyte Percent A 0.2 % (0-0.5); Lymphocytes Absolute Auto 2.38 K/mm3 (0.9-3.2); Lymphocytes Percent Auto 27.6 % (18.3-44.2); Mean Corpuscular HGB Conc 32.8 g/dl (32-36); Mean Corpuscular Hemoglobin 29.4 pg (26-34); Mean Corpuscular Volume 89.5 fl (80-100); Mean Platelet Volume 9.2 fl (7.4-10.4); Monocytes Absolute Auto 0.5 K/mm3 (0.1-0.6); Monocytes Percent Auto 5.4 % (2.6-8.5); Neutrophils Absolute Auto 5.6 K/mm3 (1.3-6.7); Neutrophils Percent Auto 64.8 % (45.5-73.1); Platelet Count Result 284 k/mm3 (150-375); Red Blood Count 4.97 M/mm3 (4.2-5.4); Red Cell Distribution Width 13.2 % (11.5-14.5); White Blood Count 8.6 K/mm3 (4.5-10.0)
[2023-04-08 12:33] LABS: Alanine Aminotransferase 38 U/L (6-35); Alkaline Phosphatase 88 U/L (38-126); Anion Gap 7 mmol/L (8-16); Aspartate Amino Transferase 43 U/L (14-36); Bilirubin,Total 0.6 mg/dL (0.2-1.3); Blood Urea Nitrogen 6 mg/dL (7-17); Calcium 9.3 mg/dL (8.4-10.2); Carbon Dioxide 26 mmol/L (22-30); Chloride 104 mmol/L (98-107); Estimated CRCL calculation 132 ml/min; Estimated Glomerular Filt Rate > 60; Glucose 95 mg/dL (65-110); Lipase 64 U/L (23-300); Potassium 3.8 mmol/L (3.4-5.0); Sodium 137 mmol/L (137-145)
--- NOTE | 2023-04-08 12:44 | ED.ABDPAIN ---
HPI - Abdominal Pain General Chief Complaint: Abdominal Pain Stated Complaint: L ABD pain Time Seen by Provider: 04/08/23 12:28 Source: patient Mode of arrival: ambulatory Limitations: no limitations History of Present Illness HPI narrative: 37-year-old female presents with left-sided abdominal pain beginning acutely at 3:00 a.m. this morning. This is associated with nausea and approximately 6-10 episodes of nonbloody nonbilious emesis. No fevers or diarrhea. She has continued to pass flatus. Her last bowel movement was this morning and she denies any constipation or blood. Her last oral intake was last night at approximately 10:00 p.m.. She does continue to have an appetite. No vaginal discharge or bleeding. She is amenorrheic after a tubal ligation and endometrial ablation nearly a decade ago. She denies any hematuria, dysuria, urgency or frequency. She has noted abdominal distension and notes that her pain is as if her intestines are on fire. She had an appendectomy with Dr. Kory Gallegos on 03/30/23. she went home from surgery on the same day and had otherwise been recovering normally without any complications. she has not been taking any pain medication. She is also having shortness of breath. Related Data Allergies Allergy/AdvReac Type Severity Reaction Status Date / Time cefuroxime Allergy Unknown Rash Verified 04/08/23 11:38 Iodinated Contrast Media Allergy Unknown Hives Verified 04/08/23 11:38 acetaminophen AdvReac Mild Hives Verified 04/08/23 11:38 banana AdvReac Mild Hives Verified 04/08/23 11:38 iohexol AdvReac Mild Hives Verified 04/08/23 11:38 [From CONTRAST - CT, XRAY] prednisone AdvReac Mild Rash Verified 04/08/23 11:38 [facility] Past Medical History Medical History (Updated 04/09/23 @ 00:00 by Louis Gallagher) Arthralgia Bipolar disorder BMI 29.0-29.9,adult BMI 30.0-30.9,adult BRBPR (bright red blood per rectum) Family hx of colon cancer Fibromyalgia Healthy adult Nausea & vomiting Obesity Schizoaffective disorder Schizophrenia Sciatica of left side Smoker Tobacco abuse Surgical History Surgical History (Updated 04/08/23 @ 13:00 by Funmilayo Maciel MD) H/O tubal ligation November 2014 History of endometrial ablation November 2014 S/P laparoscopic appendectomy 03/30/23; w/ Dr. Ania Best Family History Family History Mother Breast cancer Depression Carcinoma of colon Father Unknown family medical history Sibling No problems noted. Mother Family history of malignant neoplasm of breast in first degree relative, Onset Age: 51 Other Diabetes mellitus Family history of cardiovascular disease Family history of malignant neoplasm of breast Family history of malignant neoplasm of ovary Social History Social History Smoking packs per day: 0.25 Smoking cigarettes per day: 5.0 Years smoked: 1 Smoking pack-years: 0.25 Smoking status: Current every day smoker Tobacco type: e-cigarettes/vaping Second hand tobacco smoke exposure: Yes Alcohol intake: former Drinks per week: 20 Substance use: former Substance use type: marijuana Last use: 2x weekly Living arrangements: alone Occupation/Education: occupation Additional occupation/education comments: [employer] Gender identity (if verbalized by the patient): Female Sexual Orientation (if Verbalized by the Patient): Straight or Heterosexual Spiritual care concerns: No Agree to blood products: Yes Exam Narrative: GENERAL: Well-appearing, well-nourished, and in no acute distress. HEAD: Normocephalic, atraumatic. EYES: Non injected, non icteric ENT: Nares clear, no rhinorrhea or epistaxis. NECK: Supple. CHEST: Speaking full sentences. No respiratory distress. HEART: Regular rate and rhythm. . ABDOMEN: Soft but distended. Increased tympanic sounds
[2023-04-08] MEDS: MORPHINE SULFATE (*CRX) 4 MG/ML INJ IV PUSH (13:04)
[2023-04-08] MEDS: ONDANSETRON INJ 4 MG/2 ML VIAL IV PUSH (13:04)
[2023-04-08 13:06] LABS: Magnesium 1.9 mg/dL (1.6-2.3)
[2023-04-08 13:41] LABS: Appearance Urine Clear (Clear); Bilirubin Urine Negative (Negative); Blood Urine Negative (Negative); Color Urine Yellow (Yellow); Glucose Urine UA Negative (Negative); Ketones Urine Negative (Negative); Leukocyte Esterase Ur Negative LEU/UL (Negative); Nitrate Urine Negative (Negative); Protein Urine Negative (Negative); Specific Grav Ur 1.009 (1.001-1.035); Urobilinogen Urine 0.2 mg/dL (<2.0)
[2023-04-08 13:44] LABS: Add Urine Microscopic? NO
[2023-04-08 13:48] LABS: Influenza A QL RT-PCR Negative (Negative); Influenza B QL RT-PCR Negative (Negative); RSV RNA, RT-PCR Negative (Negative); SARS-CoV-2 RNA PCR Negative (Negative)
[2023-04-08] MEDS: KETOROLAC 15 MG/ML VIAL (*BKC) IV PUSH (15:33)
[2023-04-08] MEDS: DICYCLOMINE HCL 10 MG CAPSULE PO (15:33)
[2023-04-08 16:53] VITALS: BP 115/87; PULSE 82; RESP 20; O2SAT 100
== END 2023-04-08 16:54 | disposition home or self-care (01) ==
PROVIDERS: Emergency Medicine; Emergency Provider Student in an Organized Health Care Education/Training Program; PCP Family Medicine
DX: R10.32 Left lower quadrant pain (principal); N94.89 Other specified conditions associated with female genital organs and menstrual cycle; R74.01 Elevation of levels of liver transaminase levels; R93.2 Abnormal findings on diagnostic imaging of liver and biliary tract; Z20.822 Contact with and (suspected) exposure to COVID-19; M79.7 Fibromyalgia; E66.9 Obesity, unspecified; Z68.31 Body mass index [BMI] 31.0-31.9, adult; F17.290 Nicotine dependence, other tobacco product, uncomplicated; N20.0 Calculus of kidney
CPT/HCPCS: 36415; 71045; 74176; 80053; 81003; 81025; 83690; 83735; 85025; 87637; 96374; 96375; 99284; A9270; J1885; J2270; J2405

== ENCOUNTER 2023-04-24 07:19 | Outpatient (CLI) | payer OTHER, SELFPAY ==
--- NOTE | ~2023-04-24 | US_ITS ---
EXAMINATION: US right upper quadrant DATE: 04/24/2023 08:38 INDICATION: Right upper quadrant abdominal pain post appendectomy one month prior TECHNIQUE: Multiple grayscale and Doppler ultrasound images of the abdomen were obtained. COMPARISON: None FINDINGS: The pancreatic head and body are normal in appearance. The pancreatic tail is not visualized. Liver has normal contour, with a smooth surface. There is increased parenchymal echogenicity and coarsened echotexture consistent with diffuse hepatic steatosis. No liver lesion identified. No intrahepatic b iliary duct dilation suspected. Portal venous flow was seen in the hepatopetal, normal direction and has normal Doppler waveform. The visualized proximal inferior vena cava is normal. There are mobile e chogenic and shadowing gallstones within the otherwise normal-appearing nondilated gallbladder. The c ommon bile duct measures 405 mm in diameter which is normal. Sonographic Holloway sign was reported as negative by the building operator.Visualized right kidney demonstrates normal contour and echogenicity with mild cortical thinning but no hydronephrosis. IMPRESSION: 1. Cholelithiasis without findings of acute cholecystitis or biliary ductal dilation. 2. Diffuse hepatic steatosis. Reviewed, dictated and finalized at location [facility]. IMPRESSION: 1. Cholelithiasis without findings of acute cholecystitis or biliary ductal dil ation. 2. Diffuse hepatic steatosis.
== END 2023-04-24 07:20 | disposition home or self-care (01) ==
LOC: ANHIMG 07:24
PROVIDERS: PCP Family Medicine; Visit Provider Surgery
DX: K35.200 Acute appendicitis with generalized peritonitis, without perforation or abscess (principal); K80.20 Calculus of gallbladder without cholecystitis without obstruction; K76.0 Fatty (change of) liver, not elsewhere classified
CPT/HCPCS: 76705

== ENCOUNTER 2023-05-28 05:47 | Day surgery (SDC) | payer OTHER, SELFPAY ==
[2023-05-28] VITALS (20 sets, daily range): BP systolic 111–145; BP diastolic 62–109; PULSE 61–92; RESP 12–26; TEMP 36.3–36.6; O2SAT 82–100
--- NOTE | ~2023-05-28 | CT_ITS ---
Non-contrast CT scan of the Abdomen and Pelvis Clinical indication: Abdominal pain Technique: 2.5 mm axial scans were obtained through the abdomen and pelvis without intravenous or or al contrast. Dose reduction technique was used on this scan by utilizing automated exposure control a nd iterative reconstruction technique. The dose-length product (DLP) was 487.73 mGy-cm. COMPARISON: 04/08/2023 Findings: Images through the lung bases reveal no abnormalities. There are punctate bilateral nonobstructing renal stones. No ureteral stone or hydronephrosis on eith er side. The liver, spleen, pancreas, gallbladder, and adrenals appear normal. There is no aortic aneurysm. There is no evidence of bowel obstruction. Images through the pelvis were performed. There is no evidence of ascites or lymphadenopathy. Urinary bladder unremarkable. No adnexal mass seen. No ascites. Impression: Punctate bilateral nonobstructing renal stones. Reviewed, dictated and finalized at [facility]. Impression: Punctate bilateral nonobstructing renal stones.
--- NOTE | ~2023-05-28 | US_ITS ---
Limited Abdominal Sonogram: Real-time sonographic imaging of the right upper quadrant was performed. Clinical History: Abdominal pain Findings: The liver appears echogenic with no evidence of mass lesion or bile duct dilatation. Main portal vein demonstrates normal direction of flow. The gallbladder is well distended, and contains mu ltiple echogenic gallstones. Gallbladder wall thickening up to 6 mm. The common bile duct measures 3 mm. The visualized pancreas, aorta, and IVC are unremarkable. Impression: Cholelithiasis. Mild gallbladder wall thickening could reflect superimposed acute cholecystitis. Robin elate clinically. Consider HIDA scan as indicated. Diffuse fatty infiltration of the liver. Reviewed, dictated and finalized at location . Impression: Cholelithiasis. Mild gallbladder wall thickening could reflect superimposed acu te cholecystitis. Correlate clinically. Consider HIDA scan as indicated. Diffuse fatty infiltration of the liver.
[2023-05-28 06:17] LABS: Basophils Percent Auto 0.3 % (0.2-1.2); Eosinophils Absolute Auto 0.1 K/mm3 (0-0.3); Eosinophils Percent Auto 0.6 % (0-4.4); Hematocrit 43.5 % (37.0-47.0); Hemoglobin 14.4 g/dL (12.0-15.0); Immature Granulocyte Absolute 0.03 K/mm3 (0.00-0.031); Immature Granulocyte Percent A 0.3 % (0-0.5); Lymphocytes Absolute Auto 1.36 K/mm3 (0.9-3.2); Lymphocytes Percent Auto 13.9 % (18.3-44.2); Mean Corpuscular HGB Conc 33.1 g/dl (32-36); Mean Corpuscular Hemoglobin 29.7 pg (26-34); Mean Corpuscular Volume 89.7 fl (80-100); Mean Platelet Volume 9.3 fl (7.4-10.4); Monocytes Absolute Auto 0.4 K/mm3 (0.1-0.6); Monocytes Percent Auto 3.6 % (2.6-8.5); Neutrophils Percent Auto 81.3 % (45.5-73.1); Platelet Count Result 281 k/mm3 (150-375); Red Blood Count 4.85 M/mm3 (4.2-5.4); Red Cell Distribution Width 12.8 % (11.5-14.5); White Blood Count 9.8 K/mm3 (4.5-10.0)
--- NOTE | 2023-05-28 06:22 | ED.ABDPAIN ---
HPI - Abdominal Pain General Chief Complaint: Abdominal Pain <Zeeshan Parsons MD - Last Filed: 05/28/23 06:23> Stated Complaint: Abd pain, back pain, n/v <Zeeshan Parsons MD - Last Filed: 05/28/23 06:23> Time Seen by Provider: 05/28/23 06:16 <Zeeshan Parsons MD - Last Filed: 05/28/23 06:23> Source: patient <Zeeshan Parsons MD - Last Filed: 05/28/23 06:23> Mode of arrival: ambulatory <Zeeshan Parsons MD - Last Filed: 05/28/23 06:23> Limitations: no limitations <Zeeshan Parsons MD - Last Filed: 05/28/23 06:23> History of Present Illness HPI narrative: 37-year-old female with appendectomy few months ago here presenting with diffuse generalized abdominal pain. Mostly it is epigastric in started last night with some nausea and intermittent vomiting which is nonbloody nonbilious but her pain is also coming in cramping waves throughout her entire abdomen. Normal bowel movements. Normal urination. No vaginal bleeding or discharge. All other symptoms and complaints are negative as per ROS. <Zeeshan Parsons MD - Last Filed: 05/28/23 06:23> Related Data Allergies/Adverse Reactions: Allergies Allergy/AdvReac Type Severity Reaction Status Date / Time cefuroxime Allergy Unknown Rash Verified 05/28/23 05:58 Iodinated Contrast Media Allergy Unknown Hives Verified 05/28/23 05:58 acetaminophen AdvReac Mild Hives Verified 05/28/23 05:58 banana AdvReac Mild Hives Verified 05/28/23 05:58 iohexol AdvReac Mild Hives Verified 05/28/23 05:58 [From CONTRAST - CT, XRAY] prednisone AdvReac Mild Rash Verified 05/28/23 05:58 <Zeeshan Parsons MD - Last Filed: 05/28/23 06:23> Review of Systems Review of Systems: All systems reviewed & are unremarkable except as noted in HPI and below <Zeeshan Parsons MD - Last Filed: 05/28/23 06:23> PMFSH Past Medical History Medical History: Medical History Arthralgia Bipolar disorder BMI 29.0-29.9,adult BMI 30.0-30.9,adult BRBPR (bright red blood per rectum) Family hx of colon cancer Fibromyalgia Healthy adult Nausea & vomiting Obesity Schizoaffective disorder Schizophrenia Sciatica of left side Smoker Tobacco abuse <Zeeshan Parsons MD - Last Filed: 05/28/23 06:23> Surgical History Surgical History: Surgical History H/O tubal ligation November 2014 History of endometrial ablation November 2014 S/P laparoscopic appendectomy 03/30/23; w/ Dr. Ania Best <Zeeshan Parsons MD - Last Filed: 05/28/23 06:23> Family History Family History: Family History Mother Breast cancer Depression Carcinoma of colon Father Unknown family medical history Sibling , Onset Age: 38 suicide Sibling Deaf Other Diabetes mellitus Family history of cardiovascular disease Family history of malignant neoplasm of breast Family history of malignant neoplasm of ovary <Zeeshan Parsons MD - Last Filed: 05/28/23 06:23> Social History Social History: Social History Smoking packs per day: 0.25 Smoking cigarettes per day: 5.0 Years smoked: 1 Smoking pack-years: 0.25 Smoking status: Current every day smoker Tobacco type: e-cigarettes/vaping Second hand tobacco smoke exposure: Yes Alcohol intake: former Drinks per week: 20 Substance use: current Substance use type: marijuana Last use: 2x weekly Do You Feel Safe in your Home?: Yes Lack of Transportation: No Lack of Food: Never True Current Housing: I Have Housing Concerned About Future Housing: No Difficulty Paying Gas/Electric Bills: No Difficulty Paying for Meds: No Currently Unemployed: No Education: High School Diploma/GED Difficulty w/ Childcare or Family Care: No
[2023-05-28] MEDS: SODIUM CHLORIDE 0.9% IV 1,000 ML 999 ML IV CONT (06:29)
[2023-05-28] MEDS: ONDANSETRON INJ 4 MG/2 ML VIAL IV PUSH ×2 (06:29→13:38)
[2023-05-28] MEDS: MORPHINE SULFATE (*CRX) 4 MG/ML INJ IV PUSH (06:29)
[2023-05-28 06:38] LABS: Alanine Aminotransferase 81 U/L (6-35); Albumin Level 4.7 g/dL (3.5-5.1); Alkaline Phosphatase 96 U/L (38-126); Anion Gap 8 mmol/L (4-12); Aspartate Amino Transferase 47 U/L (14-36); Bilirubin,Total 0.6 mg/dL (0.2-1.3); Blood Urea Nitrogen 17 mg/dL (7-17); Calcium 9.2 mg/dL (8.4-10.2); Carbon Dioxide 23 mmol/L (22-30); Chloride 104 mmol/L (98-107); Estimated CRCL calculation 88 ml/min; Estimated Glomerular Filt Rate > 60; Glucose 119 mg/dL (65-110); Lipase 99 U/L (23-300); Potassium 4.1 mmol/L (3.4-5.0); Sodium 135 mmol/L (137-145)
[2023-05-28 06:55] LABS: Appearance Urine Cloudy (Clear); Bacteria Urine Rare /hpf; Bilirubin Urine Negative (Negative); Blood Urine Negative (Negative); Calcium Oxalate Crystals Urine Present /hpf; Color Urine Yellow (Yellow); Glucose Urine UA Negative (Negative); Ketones Urine Trace mg/dL (Negative); Leukocyte Esterase Ur Negative LEU/UL (Negative); Nitrate Urine Negative (Negative); Protein Urine Trace mg/dL (Negative); Specific Grav Ur 1.033 (1.001-1.035); Squamous Epithelial Cell Urine Moderate /hpf (Few); pH Urine 5.5 (5.0-9.0)
[2023-05-28 06:56] LABS: Add Urine Microscopic? YES
[2023-05-28] MEDS: MORPHINE SULFATE (*CRX) 2 MG/ML INJ IV PUSH (09:40)
--- NOTE | 2023-05-28 10:09 | PM.IMHP ---
H&P: HPI History of Present Illness Date/Time: 05/28/23 10:09 Chief Complaint: Acute cholecystitis Narrative: The patient is a 37-year-old female presenting to the emergency department complaining of severe epigastric, right upper quadrant abdominal pain. The patient reports that she had some marte last night and the pain started immediately afterwards. The patient reports she has been dealing with intermittent symptoms since March. Patient reports the episodes are becoming more severe and frequent. The patient reports associated bloating, nausea, poor appetite. Workup in the emergency department, including imaging, is significant for acute cholecystitis, cholelithiasis. Review of Systems Review of Systems: All systems reviewed & are unremarkable except as noted in HPI and below PMFSH Past Medical History Medical History Arthralgia Bipolar disorder BMI 29.0-29.9,adult BMI 30.0-30.9,adult BRBPR (bright red blood per rectum) Family hx of colon cancer Fibromyalgia Healthy adult Nausea & vomiting Obesity Schizoaffective disorder Schizophrenia Sciatica of left side Smoker Tobacco abuse Surgical History Surgical History H/O tubal ligation November 2014 History of endometrial ablation November 2014 S/P laparoscopic appendectomy 03/30/23; w/ Dr. Ania Best Family History Family History Mother Breast cancer Depression Carcinoma of colon Father Unknown family medical history Sibling , Onset Age: 38 suicide Sibling Deaf Other Diabetes mellitus Family history of cardiovascular disease Family history of malignant neoplasm of breast Family history of malignant neoplasm of ovary Social History Social History Smoking packs per day: 0.25 Smoking cigarettes per day: 5.0 Years smoked: 1 Smoking pack-years: 0.25 Smoking status: Current every day smoker Tobacco type: e-cigarettes/vaping Second hand tobacco smoke exposure: Yes Alcohol intake: former Drinks per week: 20 Substance use: current Substance use type: marijuana Last use: 2x weekly Do You Feel Safe in your Home?: Yes Lack of Transportation: No Lack of Food: Never True Current Housing: I Have Housing Concerned About Future Housing: No Difficulty Paying Gas/Electric Bills: No Difficulty Paying for Meds: No Currently Unemployed: No Education: High School Diploma/GED Difficulty w/ Childcare or Family Care: No Living arrangements: alone Occupation/Education: occupation Additional occupation/education comments: [employer] Gender identity (if verbalized by the patient): Female Sexual Orientation (if Verbalized by the Patient): Straight or Heterosexual Spiritual care concerns: No Agree to blood products: Yes Meds Home Medications and Allergies Home Medications Medication Instructions Recorded Confirmed Type pregabalin 150 mg capsule 150 mg PO BID #60 caps 04/03/23 04/11/23 Rx Allergies Allergy/AdvReac Type Severity Reaction Status Date / Time cefuroxime Allergy Unknown Rash Verified 05/28/23 05:58 Iodinated Contrast Media Allergy Unknown Hives Verified 05/28/23 05:58 acetaminophen AdvReac Mild Hives Verified 05/28/23 05:58 banana AdvReac Mild Hives Verified 05/28/23 05:58 iohexol AdvReac Mild Hives Verified 05/28/23 05:58 [From CONTRAST - CT, XRAY] prednisone AdvReac Mild Rash Verified 05/28/23 05:58 Vital Signs Vital Signs - 24 hr 05/28/23 05:53 05/28/23 06:08 05/28/23 07:17 Temperature 36.6 C Pulse Rate 84 Respiratory Rate 25 H Blood Pressure 145/109 H Pulse Oximetry 100 82 L Oxygen Delivery Room Air Room Air Oxygen Flow Rate 05/28/23 07:18 05/28/23 07:17 05/28/23 05:54 Temperature Pulse Rate 80
--- NOTE | 2023-05-28 10:14 | WPDHPUPDATE1 ---
History and Physical Update Update Date/Time: 05/28/23 10:14 History and Physical has been reviewed, including an updated exam of the patient. There are NO changes in the patient's condition. Risks, benefits, and alternatives have been discussed and questions answered. Patient agrees to proceed with procedure.
[2023-05-28] MEDS: LACTATED RINGERS 1,000 ML 30 ML IV CONT ×2 (13:00→15:28)
[2023-05-28] MEDS: SCOPOLAMINE 1 MG PATCH 1 PATCH TRANSDERM (13:38)
[2023-05-28] MEDS: fentaNYL CITRATE INJ (*CRX) 100 MCG/2 ML VIAL 25 MCG IV PUSH ×5 (13:38→15:54)
[2023-05-28 13:56] LABS: Prothrombin Time 13.3 Seconds (11.1-14.7)
[2023-05-28 13:57] LABS: Partial Thromboplastin Time 26.7 Seconds (22.3-36.8)
--- NOTE | 2023-05-28 14:07 | WPDANESEPPF ---
Anes - Initial Pre Proc Eval Procedure: Operation Date: 05/28/23 14:00 Proposed Procedures p Laparoscopic Cholecystectomy - Ania Best MD Date/Time: 05/28/23 14:07 Surgeon: Ania Best MD Pre Op Diagnosis: Abd pain, back pain, n/v Patient Data Age: 37 Gender: F Height: 1.63 m Weight: 81.8 kg Last Vital Signs Temp 97.8 F 05/28/23 06:08 Pulse 89 05/28/23 12:45 Resp 17 05/28/23 12:45 BP 135/76 05/28/23 12:45 Pulse Ox 100 05/28/23 12:45 O2 Del Method Nasal Cannula 05/28/23 07:17 O2 Flow Rate 2 05/28/23 07:17 Allergies Allergy/AdvReac Type Severity Reaction Status Date / Time cefuroxime Allergy Unknown Rash Verified 05/28/23 05:58 Iodinated Contrast Media Allergy Unknown Hives Verified 05/28/23 05:58 acetaminophen AdvReac Mild Hives Verified 05/28/23 05:58 banana AdvReac Mild Hives Verified 05/28/23 05:58 iohexol AdvReac Mild Hives Verified 05/28/23 05:58 [From CONTRAST - CT, XRAY] prednisone AdvReac Mild Rash Verified 05/28/23 05:58 Home Medications Medication Instructions Recorded Confirmed Type pregabalin 150 mg capsule 150 mg PO BID #60 caps 04/03/23 05/28/23 Rx Laboratory Tests 05/28/23 05/28/23 06:09 13:38 WBC 9.8 K/mm3 (4.5-10.0) RBC 4.85 M/mm3 (4.2-5.4) Hgb 14.4 g/dL (12.0-15.0) Hct 43.5 % (37.0-47.0) MCV 89.7 fl (80-100) MCH 29.7 pg (26-34) MCHC 33.1 g/dl (32-36) RDW 12.8 % (11.5-14.5) Plt Count 281 k/mm3 (150-375) MPV 9.3 fl (7.4-10.4) Immature Gran % (Auto) 0.3 % (0-0.5) Neut % (Auto) 81.3 H % (45.5-73.1) Lymph % (Auto) 13.9 L % (18.3-44.2) Sac % (Auto) 3.6 % (2.6-8.5) Eos % (Auto) 0.6 % (0-4.4) Baso % (Auto) 0.3 % (0.2-1.2) Lymph # (Auto) 1.36 K/mm3 (0.9-3.2) Sac # (Auto) 0.4 K/mm3 (0.1-0.6) Eos # (Auto) 0.1 K/mm3 (0-0.3) Baso # (Auto) 0.0 K/mm3 (0.0-0.1) Abs Immat Gran (auto) 0.03 K/mm3 (0.00-0.031) Absolute Neuts (auto) 8.0 H K/mm3 (1.3-6.7) Absolute Nucleated RBC 0.000 K/mm3 (0.0-0.012) Nucleated RBC % 0.0 % (0.0-0.2) PT 13.3 Seconds (11.1-14.7) INR 1.0 APTT 26.7 Seconds (22.3-36.8) Sodium 135 L mmol/L (137-145) Potassium 4.1 mmol/L (3.4-5.0) Chloride 104 mmol/L (98-107) Carbon Dioxide 23 mmol/L (22-30) Anion Gap 8 mmol/L (4-12) BUN 17 D mg/dL (7-17) Creatinine 0.80 mg/dL (0.7-1.0) Estim Creat Clear Calc 88 ml/min Estimated GFR > 60 (59 - ) Glucose 119 H mg/dL (65-110) Calcium 9.2 mg/dL (8.4-10.2) Total Bilirubin 0.6 mg/dL (0.2-1.3) AST 47 H U/L (14-36) ALT 81 H U/L (6-35) Alkaline Phosphatase 96 U/L (38-126) Total Protein 8.0 g/dL (6.3-8.2) Albumin 4.7 g/dL (3.5-5.1) Lipase 99 U/L (23-300) Urine Color Yellow (Yellow) Urine Appearance Cloudy H (Clear) Urine pH 5.5 (5.0-9.0) Ur Specific [place] 1.033 (1.001-1.035) Urine Protein Trace mg/dL (Negative) Urine Glucose (UA) Negative mg/dL (Negative) Urine Ketones Trace H mg/dL (Negative) Ur Blood (Man) Negative (Negative) Urine Nitrate Negative (Negative) Urine Bilirubin Negative (Negative) Urine Urobilinogen 1.0 mg/dL (<2.0) Leukocyte Esterase Rfl Negative HANNA/UL (Negative) Urine RBC 3-5 H /hpf (0-2) Urine WBC 6-10 H /hpf (0-3) Ur Squamous Epith Cells Moderate /hpf (Few) Calcium Oxalate Crystal Present /hpf (None) Urine Bacteria Rare /hpf Urine Casts 3-5 Patient hx anesthesia problems: post op nausea/vomiting (Zofran given) Family hx anesthesia problems: none Results Review: All pre-operative results and documents have
[2023-05-28] MEDS: CLINDAMYCIN 900 MG/D5W 50 ML 900 MG/50 ML PIGGYBACK 50 MG IVPB (14:19)
[2023-05-28] MEDS: BUPIVACAINE/EPINEPHRINE 0.5% 30 ML VIAL INFILTRATE (15:00)
--- NOTE | 2023-05-28 15:22 | W.PM.PROC2 ---
Procedure Note - Detailed Date of Procedure 05/28/23 Pre-op Diagnosis acute cholecystitis, cholelithiasis Post-op Diagnosis Same Procedure Performed Laparoscopic cholecystectomy Surgeon Ania Best MD Anesthesia General Indications 37-year-old female presenting to the emergency department complaining of severe right upper quadrant abdominal pain. Workup, including imaging, significant for acute cholecystitis, cholelithiasis. Findings Acute cholecystitis with cholelithiasis Description of Procedure The patient was taken to the operating room placed in the supine position. After adequate induction of general anesthesia, the patient was prepped and draped in normal sterile fashion. A time-out was then performed to verify the patient's identity as well as the procedure being performed. I then made a 5 mm incision in the infraumbilical region. Through this, a Veress needle was placed into the peritoneal cavity and CO2 gas was then insufflated. After adequate pneumoperitoneum was achieved, the Veress needle was removed and a 5 mm optiview trocar was placed through this incision under direct visualization. I then placed the laparoscope through this trocar site and under direct visualization placed a further 12 mm subxiphoid port as well as 2 additional 5 mm ports in the right upper abdomen. The gallbladder was then identified and was noted to be severely inflamed, distended, and full of gallstones. Given the amount of distention and inflammation, the gallbladder was decompressed with a ovarian needle. There were some evidence of hydrops noted at this time. I was then able to place a grasper at the dome of the gallbladder and this was retracted anterior and cephalad up over the liver. A 2nd retractor was then placed at the infundibulum and retracted laterally, this allowed visualization of the triangle of Calot. I then was able to visualize the cystic duct in its entirety from its proximal insertion into the gallbladder, to its distal junction with the common hepatic/common bile duct junction. At this point, I carefully skeletonized the proximal cystic duct with the [place] dissector. I then clipped and transected the proximal cystic duct. Next I visualized the cystic artery. Again the artery was skeletonized, clipped, and transected. I then used the Bovie cautery to take down the peritoneal attachments of the gallbladder off the liver bed. This was somewhat difficult given the amount of inflammation in the posterior space. Once the gallbladder specimen was completely detached, an endo-pouch was placed through the 12 mm port site. I then placed the gallbladder specimen into the Endo pouch and removed the endo-pouch from the 12 mm port site. The specimen will now be sent to pathology for further review. I then copiously irrigated the right upper quadrant. Hemostasis was noted in the liver bed, the clips were noted to be in good position on both the cystic duct stump and the cystic artery stump. No other pathology was noted in the right upper quadrant. I then moved the laparoscope to the subxiphoid port. No iatrogenic injury or other pathology was noted in the lower abdomen. I then closed the 12 mm trocar site under direct visualization using the Zechariah cone and 0 Vicryl suture. At this point, the abdomen was desufflated and all ports removed. All port sites were then closed with 4.O Monocryl subcuticular sutures. Dermabond was placed on each incision. The patient tolerated the procedure well, was extubated in the operating room postoperative and will be transferred to the recovery room in stable condition Estimated Blood Loss 10 Drains No Packing No Pathology Yes Complications No immediate complications Condition Stable Disposition PACU [facility] Billing Surgery - Charge Forward: Surgery Billing
[2023-05-28] MEDS: oxyCODONE HCL (*CRX) 5 MG TAB IR PO (16:33)
== END 2023-05-28 17:09 | disposition home or self-care (01) ==
LOC: ANHED 10:05 → ANHSURGERY 10:14
PROVIDERS: Emergency Medicine; Emergency Provider Student in an Organized Health Care Education/Training Program; PCP Family Medicine; Visit Provider Surgery
PROC: 0FT44ZZ Resection of Gallbladder, Percutaneous Endoscopic Approach (ICD-10-PCS; CPT 47562; principal; 2023-05-28 14:00)
DX: K80.10 Calculus of gallbladder with chronic cholecystitis without obstruction (principal); N20.0 Calculus of kidney; K76.0 Fatty (change of) liver, not elsewhere classified; F31.9 Bipolar disorder, unspecified; F25.9 Schizoaffective disorder, unspecified; F17.290 Nicotine dependence, other tobacco product, uncomplicated; F12.90 Cannabis use, unspecified, uncomplicated; E66.9 Obesity, unspecified; Z68.31 Body mass index [BMI] 31.0-31.9, adult; Z98.890 Other specified postprocedural states; Z80.3 Family history of malignant neoplasm of breast; Z80.0 Family history of malignant neoplasm of digestive organs; Z80.41 Family history of malignant neoplasm of ovary; Z82.49 Family history of ischemic heart disease and other diseases of the circulatory system
CPT/HCPCS: 47562; 36415; 74176; 76705; 80053; 81001; 81025; 83690; 85025; 85610; 85730; 86850; 86900; 86901; 87086; 87088; 88304; 96361; 96374; 96375; 96376; 99285; A9270; J0330; J1100; J2250; J2270; J2405; J2704; J3010; J7030; J7120

== ENCOUNTER 2023-11-12 09:24 | Emergency (ER) | payer OTHER, SELFPAY ==
[2023-11-12 09:39] VITALS: BP 116/81; PULSE 71; RESP 16; TEMP 36.8; O2SAT 98
--- NOTE | 2023-11-12 09:43 | ED.EYEPROB ---
HPI - Eye Problem General Chief complaint: Eye Problems Stated complaint: left eye hurts,red,discharge Time Seen by Provider: 11/12/23 09:50 Source: patient and RN notes reviewed Mode of arrival: ambulatory Limitations: no limitations History of Present Illness HPI Narrative: 38-year-old female presents with concern of for left eye irritation, discomfort, redness, swelling to the eyelid. Reports she had some crusty drainage this morning. Reports symptoms started a week ago. MD chief complaint: eye pain Related Data Allergies Allergy/AdvReac Type Severity Reaction Status Date / Time cefuroxime Allergy Unknown Rash Verified 11/12/23 09:45 Iodinated Contrast Media Allergy Unknown Hives Verified 11/12/23 09:45 acetaminophen AdvReac Mild Hives Verified 11/12/23 09:45 banana AdvReac Mild Hives Verified 11/12/23 09:45 iohexol AdvReac Mild Hives Verified 11/12/23 09:45 [From CONTRAST - CT, XRAY] prednisone AdvReac Mild Rash Verified 11/12/23 09:45 Review of Systems Review of Systems: CONSTITUTIONAL: Denies malaise, chills, sweats, or fever. EYES: Denies visual changes. Reports left eye redness, irritation, discharge. ENT: Denies rhinorrhea, congestion, sinus pain, otalgia or sore throat. SKIN: Denies rash or itching. NEUROLOGIC: Denies numbness, weakness, or headache. PSYCHIATRIC: Denies anxiety or depression. All systems reviewed & are unremarkable except as noted in HPI and below PMFSH Past Medical History Medical History Arthralgia Bipolar disorder BMI 29.0-29.9,adult BMI 30.0-30.9,adult BRBPR (bright red blood per rectum) Family hx of colon cancer Fibromyalgia Healthy adult Nausea & vomiting Obesity Schizoaffective disorder Schizophrenia Sciatica of left side Smoker Tobacco abuse Surgical History Surgical History H/O tubal ligation November 2014 History of endometrial ablation November 2014 Hx laparoscopic cholecystectomy 05/28/23 Dr. Ania Best S/P laparoscopic appendectomy 03/30/23; w/ Dr. Ania Best Family History Family History Mother Breast cancer Depression Carcinoma of colon Father Unknown family medical history Sibling , Onset Age: 38 suicide Sibling Deaf Other Diabetes mellitus Family history of cardiovascular disease Family history of malignant neoplasm of breast Family history of malignant neoplasm of ovary Social History Social History Smoking packs per day: 0.25 Smoking cigarettes per day: 5.0 Years smoked: 1 Smoking pack-years: 0.25 Smoking status: Current every day smoker Tobacco type: e-cigarettes/vaping Second hand tobacco smoke exposure: Yes Alcohol intake: former Drinks per week: 20 Substance use: current Substance use type: marijuana Last use: 2x weekly Do You Feel Safe in your Home?: Yes Lack of Transportation: No Lack of Food: Never True Current Housing: I Have Housing Concerned About Future Housing: No Difficulty Paying Gas/Electric Bills: No Difficulty Paying for Meds: No Currently Unemployed: No Education: High School Diploma/GED Difficulty w/ Childcare or Family Care: No Living arrangements: alone Occupation/Education: occupation Additional occupation/education comments: [employer] Gender identity (if verbalized by the patient): Female Sexual Orientation (if Verbalized by the Patient): Straight or Heterosexual Spiritual care concerns: No Agree to blood products: Yes Comments At time of signature, agree with nursing past medical, surgical, social and family history. There is no relevant family history pertinent to the presenting complaint Exam Narrative: GENERAL: Well-appearing, well-nourished, and in no acute distress. HEAD: Normocephali
== END 2023-11-12 10:02 | disposition home or self-care (01) ==
PROVIDERS: Emergency Provider Nurse Practitioner; PCP Family Medicine
DX: H00.024 Hordeolum internum left upper eyelid (principal); F17.290 Nicotine dependence, other tobacco product, uncomplicated; F12.90 Cannabis use, unspecified, uncomplicated; M79.7 Fibromyalgia; E66.9 Obesity, unspecified; Z68.31 Body mass index [BMI] 31.0-31.9, adult
CPT/HCPCS: 99213; G0463

== ENCOUNTER 2023-11-27 08:46 | Emergency (ER) | payer OTHER, SELFPAY ==
--- NOTE | 2023-11-27 08:50 | ED.URI ---
HPI - URI/Sore Throat General Chief Complaint: Upper Respiratory Infection Stated Complaint: Sinus Time Seen by Provider: 11/27/23 08:51 Source: patient, RN notes reviewed and old records reviewed Mode of arrival: ambulatory Limitations: no limitations History of Present Illness HPI Narrative: Patient presents with complaints of ?I think I have COVID?. Her child accompanies her. She reports that her child has been sick for about 5 days, patient herself has been sick for 3-4 days. She complains of subjective fever, sore throat, cough. Also has some headache and body aches. She has not been taking anything for her symptoms. She reports she would like to let her body due to its work. She does not appear to be in any distress. Speaking in complete sentences Related Data Allergies Allergy/AdvReac Type Severity Reaction Status Date / Time cefuroxime Allergy Unknown Rash Verified 11/27/23 09:09 Iodinated Contrast Media Allergy Unknown Hives Verified 11/27/23 09:09 acetaminophen AdvReac Mild Hives Verified 11/27/23 09:09 banana AdvReac Mild Hives Verified 11/27/23 09:09 iohexol AdvReac Mild Hives Verified 11/27/23 09:09 [From CONTRAST - CT, XRAY] prednisone AdvReac Mild Rash Verified 11/27/23 09:09 Review of Systems Review of Systems: All systems reviewed & are unremarkable except as noted in HPI and below Constitutional: Constitutional: Reports as per HPI, Reports no additional constitutional complaints, Reports fever(s) and Reports headache(s) ENT: Reports system reviewed and no additional complaints, except as documented and Reports sore throat Cardiovascular: Cardiovascular: Reports no additional cardiovascular complaints Respiratory: Respiratory: Reports no additional respiratory complaints and Reports cough Gastrointestinal: Gastrointestinal: Reports no additional gastrointestinal complaints Musculoskeletal: Musculoskeletal: Reports myalgias PMFSH Past Medical History Medical History Arthralgia Bipolar disorder BMI 29.0-29.9,adult BMI 30.0-30.9,adult BRBPR (bright red blood per rectum) Family hx of colon cancer Fibromyalgia Healthy adult Nausea & vomiting Obesity Schizoaffective disorder Schizophrenia Sciatica of left side Smoker Tobacco abuse Surgical History Surgical History H/O tubal ligation November 2014 History of endometrial ablation November 2014 Hx laparoscopic cholecystectomy 05/28/23 Dr. Ania Best S/P laparoscopic appendectomy 03/30/23; w/ Dr. Ania Best Family History Family History Mother Breast cancer Depression Carcinoma of colon Father Unknown family medical history Sibling , Onset Age: 38 suicide Sibling Deaf Other Diabetes mellitus Family history of cardiovascular disease Family history of malignant neoplasm of breast Family history of malignant neoplasm of ovary Social History Social History Smoking packs per day: 0.25 Smoking cigarettes per day: 5.0 Years smoked: 1 Smoking pack-years: 0.25 Smoking status: Current every day smoker Tobacco type: e-cigarettes/vaping Second hand tobacco smoke exposure: Yes Alcohol intake: former Drinks per week: 20 Substance use: current Substance use type: marijuana Last use: 2x weekly Do You Feel Safe in your Home?: Yes Lack of Transportation: No Lack of Food: Never True Current Housing: I Have Housing Concerned About Future Housing: No Difficulty Paying Gas/Electric Bills: No Difficulty Paying for Meds: No Currently Unemployed: No Education: High School Diploma/GED Difficulty w/ Childcare or Family Care: No Living arrangements: alone Occupation/Education: occupation Additional occupation/education comments: [employer] Gender
[2023-11-27 09:00] VITALS: BP 116/88; PULSE 64; RESP 16; TEMP 36.4; O2SAT 98
[2023-11-27 09:42] LABS: EDCOVIDSCREEN Negative (Negative); EDINFLUASCREEN Negative (Negative); EDINFLUBSCREEN Negative (Negative); EDSTREPNEGPOS1 Negative (Negative)
== END 2023-11-27 09:52 | disposition home or self-care (01) ==
PROVIDERS: Emergency Provider Nurse Practitioner Family; PCP Family Medicine
DX: J06.9 Acute upper respiratory infection, unspecified (principal); Z20.822 Contact with and (suspected) exposure to COVID-19; F17.290 Nicotine dependence, other tobacco product, uncomplicated; F12.90 Cannabis use, unspecified, uncomplicated; M79.7 Fibromyalgia; E66.9 Obesity, unspecified; Z68.30 Body mass index [BMI] 30.0-30.9, adult
CPT/HCPCS: 87081; 87426; 87804; 87880; 99213; G0463

== ENCOUNTER 2024-02-12 11:14 | Emergency (ER) | payer OTHER, SELFPAY ==
[2024-02-12 11:15] VITALS: BP 118/82; PULSE 83; RESP 18; TEMP 36.4; O2SAT 100
[2024-02-12 13:30] LABS: Basophils Percent Auto 0.3 % (0.2-1.2); Eosinophils Absolute Auto 0.1 K/mm3 (0-0.3); Eosinophils Percent Auto 0.5 % (0-4.4); Hemoglobin 15.4 g/dL (12.0-15.0); Immature Granulocyte Absolute 0.03 K/mm3 (0.00-0.031); Immature Granulocyte Percent A 0.3 % (0-0.5); Lymphocytes Absolute Auto 2.62 K/mm3 (0.9-3.2); Lymphocytes Percent Auto 26.7 % (18.3-44.2); Mean Corpuscular HGB Conc 33.5 g/dl (32-36); Mean Corpuscular Hemoglobin 29.4 pg (26-34); Mean Platelet Volume 9.2 fl (7.4-10.4); Monocytes Absolute Auto 0.6 K/mm3 (0.1-0.6); Monocytes Percent Auto 5.9 % (2.6-8.5); Neutrophils Absolute Auto 6.5 K/mm3 (1.3-6.7); Neutrophils Percent Auto 66.3 % (45.5-73.1); Platelet Count Result 351 k/mm3 (150-375); Red Blood Count 5.23 M/mm3 (4.2-5.4); Red Cell Distribution Width 13.3 % (11.5-14.5); White Blood Count 9.8 K/mm3 (4.5-10.0)
--- NOTE | 2024-02-12 13:36 | PC.NURSE ---
pt leaves ED and states to this RN that she would like to go home. educated pt to return to the ED with any worsening symptoms. pt ambulates out of ED with steady gait and no resp. distress. EMS IV removed prior to leaving. discontinued IV intact.
[2024-02-12 13:44] LABS: Alanine Aminotransferase 37 U/L (6-35); Albumin Level 4.7 g/dL (3.5-5.1); Alkaline Phosphatase 80 U/L (38-126); Anion Gap 5 mmol/L (4-12); Aspartate Amino Transferase 28 U/L (14-36); Bilirubin,Total 0.9 mg/dL (0.2-1.3); Blood Urea Nitrogen 9 mg/dL (7-17); Calcium 9.4 mg/dL (8.4-10.2); Carbon Dioxide 22 mmol/L (22-30); Chloride 108 mmol/L (98-107); Estimated CRCL calculation 113 ml/min; Estimated Glomerular Filt Rate > 60; Glucose 90 mg/dL (65-110); Lipase 50 U/L (23-300); Sodium 135 mmol/L (137-145)
== END 2024-02-12 13:36 | disposition left against medical advice (07) ==
PROVIDERS: Emergency Provider Emergency Medicine; PCP Family Medicine
DX: R10.9 Unspecified abdominal pain (principal)
CPT/HCPCS: 36415; 80053; 83690; 85025; 99199

== ENCOUNTER 2024-05-03 12:04 | Emergency (ER) | payer OTHER, SELFPAY ==
[2024-05-03 12:19] VITALS: BP 118/81; PULSE 87; RESP 16; TEMP 36.6; O2SAT 99
[2024-05-03 12:27] LABS: EDUAAPPEAR Clear; EDUABILI Negative (Negative); EDUABLOOD Trace (Negative); EDUACOLOR1 Yellow; EDUAGLUCOSE Negative (Negative); EDUAKETONE Negative (Negative); EDUALEUKO Trace (Negative); EDUANITRATE Negative (Negative); EDUAPROTEIN Trace (Negative); EDUAUROBILI 0.2
--- NOTE | 2024-05-03 12:31 | ED.FEMALEGU ---
HPI - Female Genitourinary General Chief complaint: Urogenital-Female Stated complaint: urinary issue Time Seen by Provider: 05/03/24 12:35 Source: patient, RN notes reviewed and old records reviewed Mode of arrival: ambulatory Limitations: no limitations History of Present Illness HPI Narrative: Patient presents with complaints of 2-3 day history of urinary frequency and burning. She reports some associated back pain. Denies any cameron hematuria. She denies any fever, chills, sweats. Denies any injury or trauma. No other concerns or complaints at this time Related Data Home Medications ?Medication ?Instructions ?Recorded ?Confirmed ?Last Taken ?Type omeprazole 20 mg capsule,delayed 20 mg PO .QD 05/03/24 05/03/24 Unknown History release Allergies Allergy/AdvReac Type Severity Reaction Status Date / Time cefuroxime Allergy Unknown Rash Verified 05/03/24 12:25 Iodinated Contrast Media Allergy Unknown Hives Verified 05/03/24 12:17 acetaminophen AdvReac Mild Hives Verified 05/03/24 12:17 banana AdvReac Mild Hives Verified 05/03/24 12:17 iohexol (From CONTRAST - CT, AdvReac Mild Hives Verified 05/03/24 12:17 XRAY) prednisone AdvReac Mild Rash Verified 05/03/24 12:17 Review of Systems Review of Systems: All systems reviewed & are unremarkable except as noted in HPI and below Constitutional: Constitutional: Reports no additional constitutional complaints ENT: Reports system reviewed and no additional complaints, except as documented Cardiovascular: Cardiovascular: Reports no additional cardiovascular complaints Respiratory: Respiratory: Reports no additional respiratory complaints Gastrointestinal: Gastrointestinal: Reports no additional gastrointestinal complaints Genitourinary: Genitourinary: Reports no additional female genitourinary complaints and Reports as per HPI [facility] [place] Past Medical History Medical History Acute appendicitis Cholecystitis Acute cholecystitis BMI 30.0-30.9,adult Obesity Tobacco abuse BRBPR (bright red blood per rectum) Nausea & vomiting Arthralgia BMI 29.0-29.9,adult Sciatica of left side Fibromyalgia Schizoaffective disorder Smoker Bipolar disorder Schizophrenia Healthy adult Surgical History Surgical History Hx laparoscopic cholecystectomy 05/28/23 Dr. Ania Best S/P laparoscopic appendectomy 03/30/23; w/ Dr. Ania Best History of endometrial ablation November 2014 H/O tubal ligation November 2014 Family History Family History Mother Breast cancer Depression Father Unknown family medical history Sibling , Onset Age: 38 suicide Sibling Deaf Other Diabetes mellitus Family history of cardiovascular disease Family history of malignant neoplasm of breast Family history of malignant neoplasm of ovary Social History Social History Smoking packs per day: 0.25 Smoking cigarettes per day: 5.0 Years smoked: 1 Smoking pack-years: 0.25 Smoking status: Current every day smoker Tobacco type: e-cigarettes/vaping Second hand tobacco smoke exposure: Yes Alcohol intake: former Drinks per week: 20 Substance use: current Substance use type: marijuana Last use: 2x weekly Do You Feel Safe in your Home?: Yes Lack of Transportation: No Lack of Food: Never True Current Housing: I Have Housing Concerned About Future Housing: No Difficulty Paying Gas/Electric Bills: No Difficulty Paying for Meds: No Currently Unemployed: No Education: High School Diploma/GED Difficulty w/ Childcare or Family Care: No Living arrangements: alone Occupation/Education: occupation Additional occupation/education comments: [employer] Gender identity (if verbalized by the patient): Female Sexual Orientation (if Verbalized by the Patient): Straight or Heterosexual Spiritual care concerns: No Agree to blood products: Yes Comments At the time of my signature, I reviewed and agree with the nursing past medical, surgical, social, and family history. There is no relevant family history pertinent to the patient complaint. Exam Const: General: cooperative, no acute distress, alert and awake Orientation/consciousness: oriented to person, oriented to place and oriented to time HENMT: Head: normal to inspection Resp: Effort & Inspection: normal respiratory effort and able to speak in complete sentences Auscultation: clear to auscultation bilaterally, no crackles, no rales, no rhonchi and no wheezes Cardio: Palpation: normal PMI Rate: regular rate Rhythm: regular rhythm Heart sounds: S1 normal heart sound present and S2 normal heart sound present : General: Yes no CVA tenderness Neuro: General: oriented to person, oriented to place and oriented to time Cranial nerves: Yes CN's II-XII intact bilaterally Psych: Appearance: grossly normal Thought process: Normal thought process present Insight: Good insight present (Psych) Judgement: Good judgement present (Psych) Course Course Level of Care: Express Care Visit Vital Signs Vital signs: Vital Signs Temperature 97.8 F 05/03/24 12:19 Pulse Rate 87 05/03/24 12:19 Respiratory Rate 16 05/03/24 12:19 Blood Pressure 118/81 05/03/24 12:19 Pulse Oximetry 99 05/03/24 12:19 Oxygen Delivery Room Air 05/03/24 12:19 Temperature 97.8 F 05/03/24 12:19 Pulse Rate 87 05/03/24 12:19 Respiratory Rate 16 05/03/24 12:19 Blood Pressure 118/81 05/03/24 12:19 Pulse Oximetry 99 05/03/24 12:19 Oxygen Delivery Room Air 05/03/24 12:19 Reviewed MDM - Female Genitourinary MDM Narrative Medical decision making narrative: UA concerning for UTI. Treat with Macrobid. Patient nontoxic appearing, stable for discharge home. Culture pending. Discharge instructions reviewed with patient, as well as provided in writing per nursing staff. The instructions also include specific and strict return/GO TO THE ER as well as f/u information. All questions have been answered, and the patient deny any further questions with discharge and discharge plan. Some parts of this dictation were generated by voice recognition software and may contain typographical and/or grammatical inaccuracies. Differential Diagnosis Differential diagnosis: Likely urinary tract infection and cystitis Medical Records Attestation: I reviewed the patient's medical records. Lab Data Attestation: I reviewed the patient's lab results. Labs: Lab Results 05/03/24 Range/Units 12:23 POC Urine Color Yellow POC Urine Clarity Clear POC Urine pH 7.0 POC Ur Specif [place] 1.020 POC Urine Protein Trace (Negative) POC Ur Glucose (UA) Negative (Negative) POC Urine Ketones Negative (Negative) POC Urine Blood Trace (Negative) POC Urine Nitrite Negative (Negative) POC Urine Bilirubin Negative (Negative) POC Urine Urobilinogen 0.2 POC U Leukocyte Esteras Trace (Negative) Discharge Plan Discharge Clinical Impression: Urinary tract infection Patient Disposition: Home, Self-Care Condition: Stable Instructions: Antibiotic Form, Urinary Tract Infection in Women (ED) Additional Instructions: Take medication as prescribed. Follow with primary care provider. Emergency department for new or worsened symptoms Patient Language: Turkmen Prescriptions: New nitrofurantoin monohyd/m-cryst [Macrobid] 100 mg capsule 100 mg PO Q12H 5 Days Qty: 10 0RF Rx Instructions: must administer with a meal/food No Action omeprazole 20 mg capsule,delayed release(DR/EC) 20 mg PO .QD pregabalin 150 mg capsule 150 mg PO BID Qty: 60 1RF cholestyramine (with sugar) 4 gram powder in packet 4 g PO DAILY Qty: 30 3RF Rx Instructions: administer w/meal; avoid other meds within 1hr before or 4-6hr after dose Follow-up/Referrals: David Garcia MD [Primary Care Provider] - 2 Weeks Stand Alone Forms: Work/School Release IP Time of Disposition: 12:53
== END 2024-05-03 12:55 | disposition home or self-care (01) ==
PROVIDERS: Emergency Provider Nurse Practitioner Family; PCP Family Medicine
DX: N39.0 Urinary tract infection, site not specified (principal); F17.290 Nicotine dependence, other tobacco product, uncomplicated; F12.90 Cannabis use, unspecified, uncomplicated; M79.7 Fibromyalgia; E66.9 Obesity, unspecified; Z68.30 Body mass index [BMI] 30.0-30.9, adult
CPT/HCPCS: 81003; 87086; 99213; G0463

== ENCOUNTER 2024-05-14 01:27 | Day surgery (SDC) | payer OTHER, SELFPAY ==
[2024-05-08 10:37] VITALS: BMI 31.0
--- OUTSIDE RECORDS SUMMARY | 2024-05-14 01:30 | XMS_ITS ---
Author Organization [facility] Address [address] [place] [address] Care Team Providers Care Marketing Intelligence Analyst Name Role Phone Irma Boateng Primary Care Provider [phone] Kiki Sun [phone] Allergies Allergen (clinical drug ingredient) Drug/Non Drug Allergy documented on EMR Reaction Allergy Type Onset Date Status acetaminophen Tylenol Unknown Drug Allergy Act galo Iodinated contrast media (substance) Iodinated Diagnostic Agents Unknown Drug Allergy Active prednisone Prednisone Unknown Drug Allergy Activ e REASON FOR VISIT Establish PCP Medications Medication SIG (Take, Route, Frequency, Duration) Notes Start Date End Date Status Propranolol HCl 10 MG TAKE 1 TABLET BY M OUTH EVERY DAY AT NIGHT for 7 days Not-Taking Lyrica 150 MG 1 capsule Orally Twi ce a day Active Social History Tobacco Use: Social History Observation Description Date Details (start date - stop date) Unknown Sex Assigned At : Social History Observation Description Sex Assigned At Female Tobacco Control (Standard) Question Answer Notes Tobacco use: Uses tobacco in other forms Additional Findings: Tobacco user e-cigarette Problems Problem Type SNOMED Code ICD Code Onset Dates Problem Status W/U Status Risk Notes Problem Chronic pain (18146119) Chronic pain (G89.29) Active confirmed Vital Signs Weight 178.6 lbs 02/11/2024 Height 62 in 02/11/2024 BMI 32.66 kg/m2 02/11/2024 Blood pressure systolic 128 mm Hg 02/11/20 24 Blood pressure diastolic 74 mm Hg 024 Heart Rate 79 /min 02/11/2024 Oximetry 97 % 02/11/2024 Encounters Encounter Location Date Provider Diagnosis [facility] [address] [place] [address] 02/11/2024 Kiki Sun Establishing care wi th new doctor, encounter for Z71.89 ; Screening for deficiency anemia Z13.0 ; Screening for metabolic disorder Z13.228 ; Screening for thyroid disorder Z13.29 ; Screening for diabetes mellitus Z13.1 ; Screening for hyperlipidemia Z13.220 ; Exposure to potential infection Z20.9 and Chronic pain G89.29 Assessments Encounter Date Diagnosis (ICD Code) Assessment Notes Treatment Notes Treatment Clinical Notes Section Notes 02/11/2024 Establishing care with new doctor, encounter for (ICD-10 - Z71.89) 02/11/2024 Screening for deficiency anemia (ICD-10 - Z13.0) 02/11/2024 Screening for metabolic disorder (ICD-10 - Z13.228) 02/11/2024 Screening for thyroid disorder (ICD-10 - Z13.29) 02/11/2024 Screening for diabetes mellitus (ICD-10 - Z13.1) 02/11/2024 Screening for hyperlipidemia (ICD-10 - Z13.220) 02/11/2024 Exposure to potential infection (ICD-10 - Z20.9) 02/11/2024 Chronic pain (ICD-10 - G89.29) Plan Of Treatment Next Appt Details Follow Up: prn, Reason: Progress Notes * [place] ENGBetzaidaOB:[birth year] (38 yo F)Acc No.[id number]:02/11/2024 Progress Notes Patient: Suzette DAWN Provider: Pavel Sun APRN :1985 A ge:38 Y S ex:Female Date:02/11/2024 Address:[address] [place], [place] [id number] Pcp:Irma Boateng Check In:01:51 PM [employer] Subjective: * Chief Complaints: * E stablish PCP * HPI: I nterim History: Emergency room visit N o. W as hospitalized N o.? D epression Screening: PHQ-9 L ittle interest or pleasure in doing things S everal days, F eeling down, depressed, or hopeless S everal days, T rouble falling or staying asleep, or sleeping too much N early every day, F eeling tired or having little energy Several days, P oor appetite or overeating S everal days, F eeling bad about yourself or that you are a failure, or have let yourself or your family down S everal days, T rouble concentrating on things, such as reading the newspaper or watching television S ever,?Moving or speaking so slowly that other people could have noticed; or the opposite, being so fidgety or restless that you have been moving around a lot more than usual N ot at all, T houghts that you would be better off or of hurting yourself in some way N ot at all, T otal Score 9 , I nterpretation M ild Depression. I ntervention D epression Screening Findings P ositive, F ollow-Up for Depression N o Referral necessary, patient involved in behavioral health treatment. C SSRS Interpretation and Follow Up Plan: CSSRS Interpretation and Follow Up Plan. CSSRS Interpretation and Follow Up Plan M oderate or High risk requires selection of a follow up plan C SSRS Moderate/high: Warm hand off to Crisis Intervention team. P reventative Health and Wellness follow-up: Action Plans for Clinical Quality Measures: C ervical Cancer Screening: D iscussed need for cervical cancer screening. Patient declined., H IV Screening: D iscussed need for HIV screening. Patient declined.. . S ummary: Pt. presents with her daughter Previous PCP: David Murphy Specialty providers: WALTER Holman @ [facility] Medical History: Fibromyalgia 10 years prior- taking Lyrica 150mg BID- requesting an increase because it is the only thing that helps with the acid reflux . Pt. became aggitated when offered a different class of medication for reflux. 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 Substance use: marijuana CBC, CMP, Lipids, TSH, HgbA1C, HIV, Syphilis, inflammatory markers: agreeable to fasting labs LMP: none- endometrial ablation in 2019 PAP: 2019 CC: 10 year chronic pain, bilateral pain subscapular, wrist pain, arm pain. [facility]- bilateral arm numbness/tingling- unknown results, will get MICHEAL. Pt. reports frequent diarrhea, RLQ pain. During abdominal palpation of RLQ, pt. began crying and became aggitated. Pt. was advised that she should go to ED if she is in pain. Appendectomy in 2023, reports she has not had a f/u with GI since. P t. left before end of visit and was visibly aggitated, reported she needed a cigarrette and left the building. * ROS: G eneral/Constitutional: Denies C hange in appetite. D enies C hills. D enies F atigue. D enies F ever. D enies H eadache. D enies W eight loss.? R espiratory: Denies D yspnea. C ardiovascular: Denies E karolyn. D enies C hest pain. D enies?Claudication. G astrointestinal: Melena D enies. A dmits A bdominal pain. D enies B lood in stool. A dmits D iarrhea. A dmits H eartburn. D enies N ausea. D enies R ectal bleeding. D enies V omiting. G enitourinary: urinary problems D enies. M usculoskeletal: Denies l oss of bowel/bladder control. B ack Pain Admits. A dmits J oint stiffness. A dmits M uscle aches. A dmits P ainful joints. D enies S ciatica. D enies S wollen joints. D enies W eakness. ? S kin: Denies R kristen. * Medical History: * Surgical History: A blation 2019cholecystectomy ppendectomy 04/07 * Hospitalization/Major Diagno stic Procedure: P sychosis with Suicidal Ideation Maysychosis with Suicidal Ideation June 2021 * Family History: F ather: alive. M other: alive. 2 brother(s) . 3 daughter(s) - healthy. . Mom: per client: claims she does not. But most likely. Has drug issues. Also reports she has colon cancer. Dad: per client: claims he does not. But most likely. Has drug issues. Siblings: unknown Maternal side: BRCA, pancreatic cancer. Maternal grandfather had Alzheimers. * Social History: P rimary Social History: L iving Arrangement L iving Arrangement: D ependent Living, L iving with: P arent(s) mother, I s this a supportive environment? N o States technically sometimes I am homeless. States it is not a good environment as the house is haunted by spirits that do not like me and torment me. Reports mom does not understand why she is sick. . A lcohol Use A lcohol Use Frequency: W eekly or Daily nearly every day. discussed this should not be taken with psychiatric medications. client voiced understanding. . I llicit Substance Usage I llicit Substance Usage: Y es, S ubstance Used: C annabis, F requency Cannabis is used: nearly every day. discussed this should not be taken with psychiatric medications. client voiced understanding. . 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 T obacco Use - do not use T obacco Use: S tatus Reviewed with Patient daily around a half pack per day unless she is out of them per client. . T obacco Use: T obacco Control (Standard) T obacco use: U ses tobacco in other forms, A dditional Findings: Tobacco user e -cigarette. M iscellaneous: M ethod of learning P referred method of learning: R dany,Discussion,Demonstration,Hearing. * Medications: T akingLyrica 150 MG Capsule 1 capsule Orally Twice a day Taking Lyrica 150 MG Capsule 1 capsule Orally Twice a day Not-TakingPropranolol HCl 10 MG Tablet TAKE 1 TABLET BY MOUTH EVERY DAY AT NIGHT Medication List reviewed and reconciled with the patientNot-Taking Propranolol HCl 10 MG Tablet TAKE 1 TABLET BY MOUTH EVERY DAY AT NIGHT Medication List reviewed and reconciled with the patient * Allergies: P rednisoneIodinated Diagnostic AgentsTylenolno[Allergies Verified] Objective: * Vitals: W t:178.6, Ht: 62, BMI:32.66, BP:128/74, HR:79, Oxygen sat %:97, LMP: N/A, Pain scale:4. * Examination: G eneral Examination: GENERAL APPEARANCE: w ell developed, , obese, mild distress. EYES: P ERRLA, sclera and conjunctiva clear. EARS a uditory canal clear, tympanic membrane intact, clear, light reflex present. NOSE: n guillermina patent, no lesions, septum intact. ORAL CAVITY: m ucosa moist. THROAT: n o erythema, no exudate, pharynx normal. NECK/THYROID: n o cervical lymphadenopathy, no thyromegaly.? SKIN: w arm and dry, no rashes. HEART: r egular rate and rhythm, no murmurs. LUNGS: r espirations regular and easy, clear to auscultation bilaterally. ABDOMEN: b owel sounds present, soft, nondistended, no masses palpable, no organomegaly Pt.became upset with abdominal palpation and became tearful. See HPI. MUSCULOSKELETAL: n o joint deformity, cervical spine normal, Negative low back tenderness with deep palpation. full range of motion all joints, no joint swelling, redness, or warmth. SELENA., Moves about easily without limitation. No signs of fibromyalgia noted on PE. . PERIPHERAL PULSES: 2 + radial. PSYCH: a lert, oriented x4. Pt. visibly agitated and left appointment early.. Assessment: * Assessment: 1. E stablishing care with new doctor, encounter for - Z71.89 (Primary) 2 .?Screening for deficiency anemia - Z13.0 3 . S creening for metabolic disorder - Z13.228 4 . S creening for thyroid disorder - Z13.29 5 . S creening for diabetes mellitus - Z13.1 6 . S creening for hyperlipidemia - Z13.220 7 . E xposure to potential infection - Z20.9 8 . C hronic pain - G89.29 Plan: * Treatment: 2. S creening for metabolic disorder L AB: CMP 14 Comprehensive Metabolic Panel* (Ordered for 02/11/2024) 3. S creening for thyroid disorder L AB: TSH Rfx on Abnormal to Free T4 (Ordered for 02/11/2024) 4. S creening for diabetes mellitus L AB: Hemoglobin A1c* (Ordered for 02/11/2024) 5. S creening for hyperlipidemia L AB: Lipid Panel* (Ordered for 02/11/2024) 6. E xposure to potential infection L AB: HIV Screen *HIV 1, 2 Ab, p24 Ag (Ordered for 02/11/2024) L AB: Rapid Plasma Reagin (RPR) Test With Reflex to Quantitative RPR and Confirmatory Treponema pallidum Antibodies (Ordered for 02/11/2024) 7. C hronic pain L AB: C-Reactive Protein, Quant (Ordered for 02/12/2024) L AB: Rheumatoid Arthritis Factor (Ordered for 02/12/2024) * Recommended Wellness and Pre vention Guidelines: * S tatus A lert L ast Done N ext Due A ction Taken N ONCOMPLIANT A lcohol use screening - 1 - N ONCOMPLIANT C ervical cancer screening - 1 - N ONCOMPLIANT H IV screening - 1 - N ONCOMPLIANT I nfluenza vaccine (high risk) - 1 - * Procedure Codes: 3 008F BODY MASS INDEX [id number] MEDICAL NUTRITION, INDIV, [id number] BEHAV CHNG SMOKING 3-10 MIN * Preventive Medicine: Counseling: C are goal follow-up plan: B GA management provided Y es, Randall farr Normal BMI Follow-up L ifestyle education regarding diet. S MOKING: P atient counselled on the dangers of tobacco use and urged to quit. . . * Follow Up: p rn * * [employer] Sign off status: Completed true * Provider: Pavel Sun, DEVANG Date: Generated for Bebe augustin/Faina/Karin on: 0 05/14/2024 01:30 AM CDT History and Physical Notes * HPI (History of Present Illness) Category Sub-Category Detail Notes Category Not es Interim History Was hospitalized No Emergency room visit No Depression Screening PHQ-9 Little inte rest or pleasure in doing things: Several days Feeling down, depressed, or hopeless: Se veral days Trouble falling or staying asleep, or sl eeping too much: Nearly every day Feeling tired or having little energy: S everal days Poor appetite or overeating: Several day s Feeling bad about yourself o r that you are a failure, or have let yourself or your family down: Several days Trouble concentrating on thi ngs, such as reading the newspaper or watching television: Several days Moving or speaking so slowly that other people could have noticed; or the opposite, being so fidgety or restless that you have been moving around a lot more than usual: Not at all Thoughts that you would be b rosmery off or of hurting yourself in some way: Not at all Total Score: 9 Interpretation: Mild Depression Intervention Depression Screening Findings: P ositive Follow-Up for Depression: No Referral necessary, patient involved in behavioral health treatment Summary Pt. presents with her daughter Previous PCP: David Murphy Specialty providers: WALTER Holman @ [facility] Medical History: Fibromyalgia 10 years prior- taking Lyrica 150mg BID- requesting an increase because it is the only thing that helps with the acid reflux . Pt. became aggitated when offered a different class of medication for reflux. 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 Substance use: marijuana CBC, CMP, Lipids, TSH, HgbA1C, HIV, Syphilis, inflammatory markers: agreeable to fasting labs LMP: none- endometrial ablation in 2019 PAP: 2019 CC: 10 year chronic pain, bilateral pain subscapular, wrist pain, arm pain. [facility] in 2023- bilateral arm numbness/tingling- unknown results, will get MICHEAL. Pt. reports frequent diarrhea, RLQ pain. During abdominal palpation of RLQ, pt. began crying and became aggitated. Pt. was advised that she should go to ED if she is in pain. Appendectomy in 2023, reports she has not had a f/u with GI since. Pt. left before end of visit and was visibly aggitated, reported she needed a cigarrette and left the building. Do Not Use CSSRS Interpretation and Follow Up Plan CSSRS Interpretation and Follow Up Plan Moderate or High risk requires selection of a follow up plan: CSSRS Moderate/high: Warm hand off to Crisis Intervention team Preventative Health and Wellness follow-up Action Plans for Clinical Quality Measures: Cervical Cancer Screening:: Discussed need for cervical cancer screening. Patient declined. . HIV Screening:: Discussed need for HIV s creening. Patient declined. Examination Category Sub-Category Detail Notes Category Not es General Examination GENERAL APPEARANCE: well dev eloped, , obese, mild distress EYES: PERRLA, sclera and c onjunctiva clear EARS auditory canal clear , tympanic membrane intact, clear, light reflex present NOSE: nares patent, no les ions, septum intact THROAT: no erythema, no exud ate, pharynx normal NECK/THYROID: no cervical lymphade nopathy, no thyromegaly HEART: regular rate and rhy thm, no murmurs LUNGS: respirations regular and easy, clear to auscultation bilaterally ABDOMEN: bowel sounds present , soft, nondistended, no masses palpable, no organomegaly Pt.became upset with abdominal palpation and became tearful. See HPI SKIN: warm and dry, no luis hes PERIPHERAL PULSES: 2+ radial MUSCULOSKELETAL: no joint deformity, cervical spine normal, Negative low back tenderness with deep palpation. full range of motion all joints, no joint swelling, redness, or warmth. SEELNA., Moves about easily without limitation. No signs of fibromyalgia noted on PE. PSYCH: alert, oriented x4. Pt. visibly agitated and left appointment early. ORAL CAVITY: mucosa moist
--- OUTSIDE RECORDS SUMMARY | 2024-05-14 01:30 | XMS_ITS | Clinical Summary ---
Author Organization [facility] Address [address] [place] [address] Care Team Providers Care Print Press Operator Name Role Phone David Garcia MD Primary Care Provider [phone] Allergies Active Allergy Reactions Criticality Noted Date Comments Banana Hives 02/29/2024 Iodine Hives 02/29/2024 Prednisone Rash Low 02/29/2024 Acetaminophen Hives 02/29/2024 Medications omeprazole (PRILOSEC) 20 MG capsule Take 1 capsule (20 mg total) by mouth daily. 30 capsule 02/29/2024 Active Encounters Date Type Department Care Team Description 02/29/2024 8:39 AM SUCCESS COACH - 02/29/2024 12:14 PM SUCCESS COACH Emergency [facility] [place] [address] Maude Bourgeois NP Vomiting Blood Discharge Disposition: Home or Self Care (Routine Discharge) 02/29/2024 Travel from Last 3 Months Social History Tobacco Use Types Packs/Day Years Used Date Smoking Tobacco: Never Smokeless Tobacco: Never Tobacco Cessation:Counseling Given: Not Answered Alcohol Use Standard Drinks/Week Comments Not Currently 0 (1 standard drink = 0.6 oz pur e alcohol) Comments No Sex and Gender Information Value Date Recorded Sex Assigned at Female 02/29/2024 8:29 AM SUCCESS COACH Legal Sex Female 4:56 PM CDT Gender Identity Not on file Sexual Orientation Not on file Last Filed Vital Signs Vital Sign Reading Time Taken Comments Blood Pressure 110/80 02/29/2024 11:22 AM SUCCESS COACH Pulse 80 02/29/2024 11:22 AM SUCCESS COACH Temperature 36.6 C (97.8 F) 02/29/2024 8:31 AM SUCCESS COACH Respiratory Rate 18 02/29/2024 11:22 AM SUCCESS COACH Oxygen Saturation 100% 02/29/2024 11:22 AM SUCCESS COACH Inhaled Oxygen Concentration - - Weight 79.8 kg (176 lb) 02/29/2024 8:31 AM SUCCESS COACH Height 160 cm (5' 3 ) 02/29/2024 8:31 AM SUCCESS COACH Body Mass Index 31.18 02/29/2024 8:31 AM SUCCESS COACH Plan of Treatment Health Maintenance Due Date Last Done Comments Cervical Cancer Screening Pa p Smear (Age 30 to 64) Every 3 Years 1987 Annual Physical 08/17/1990 Hepatitis C 08/17/2005 DTaP, Tdap and Td Vaccines ( 1 - Tdap) 08/17/2006 Hepatitis B Vaccines (1 of 3 - 19+ 3-dose series) 08/17/2006 Cervical Cancer Screening Pa p with HPV Testing (Age 30 to 64) Every 5 Years 08/17/2017 Cervical Cancer Screening with HPV 08/17/2017 COVID-19 Vaccine (2023-2 5 season) 2023 HPV Vaccines Aged Out No longer eligi ble based on patient's age to complete this topic Meningococcal B Vaccine Aged Out No l onger eligible based on patient's age to complete this topic Meningococcal Vaccine Aged Out No faby edel eligible based on patient's age to complete this topic Pneumococcal Vaccine: Pediat rics (0 to 5 Years) and At-Risk Patients (6 to 64 Years) Aged Out No longer eligible b ased on patient's age to complete this topic RSV Immunizations Under 20 Months Aged Out No longer eligible based on patient's age to complete this topic Procedures Procedure Name Priority Date/Time Associated Diagnosis Comments CT ABD+PEL WO CON STAT 02/29/2024 9:4 0 AM SUCCESS COACH XR CHEST PORTABLE STAT 02/29/2024 9:1 2 AM SUCCESS COACH POCT URINE (BACK OFFICE) STAT 02/29/2024 8:46 AM SUCCESS COACH D-DIMER, QUANTITATIVE STAT 02/29/2024 8:45 AM SUCCESS COACH HC URINALYSIS AUTO W/O MICRO STAT 02/29/2024 8:45 AM SUCCESS COACH COMPREHENSIVE METABOLIC PANEL STAT 02/29/2024 8:45 AM SUCCESS COACH PROTHROMBIN TIME, VENOUS STAT 02/29/2024 8:45 AM SUCCESS COACH CBC W/DIFF AUTOMATED STAT 02/29/2024 8:45 AM SUCCESS COACH from Last 3 Months Results * CT ABD+PEL WO CON (02/29/2024 9:40 AM SUCCESS COACH) Anatomical Region Laterality Modality Abdomen Computed Tomogra phy 02/29/2024 9:41 AM SUCCESS COACH Impressions 02/29/2024 9:43 AM SUCCESS COACH IMPRESSION: 1. 2 punctate nonobstructing right-sided kidney stones otherwise no acute findings Ordered By: MUADE BOURGEOIS Interpreted By: David Sims MD, 02/29/2024 9:41 AM Narrative 02/29/2024 9:43 AM SUCCESS COACH [address] [address] [address] ABDOMEN AND PELVIS WITHOUT CONTRAST Clinical history: Vomiting. Technique: Helical images of the abdomen and pelvis were obtained without contrast. A dose lowering technique was used for this procedure, which may include, but is not limited to, dose reduction technique, automated exposure control, the use of iterative reconstruction, and ALARA (As Low As Reasonably Achievable) / Image Gently techniques. Comparison: without prior studies available for comparison. FINDINGS: Images of the lower thorax demonstrate the visualized portion of the heart to appear normal. The lung bases are clear. Images of the abdomen demonstrate the overall size and morphology of the liver to be within normal limits. No hepatic lesions are observed. No ascites is seen. The gallbladder is surgically absent. The pancreas, spleen, and adrenal glands appear grossly normal. The kidneys are normal in overall size. On the right there are 2 punctate nonobstructing stones within the lateral calyces. On the left no stones or hydronephrosis is observed. Images of the pelvis demonstrate the urinary bladder to appear normal. The uterus is normal in size and resides in an anteverted position in the mid pelvis. The adnexa appear normal. The stomach and small bowel have a normal overall appearance. The terminal ileum appears normal. The appendix is surgically absent. The colon appears grossly normal. No adenopathy or abnormal fluid collections are present Procedure Note David Sims MD - 02/29/2024 [facility] [address] [place], [place] [address] CT ABDOMEN AND PELVIS WITHOUT CONTRAST Clinical history: Vomiting. Technique: Helical images of the abdomen and pelvis were obtained withoutcontrast. A dose lowering technique was used for this procedure, which mayinclude, but is not limited to, dose reduction technique, automatedexposure control, the use of iterative reconstruction, and ALARA (As LowAs Reasonably Achievable) / Image Gently techniques. Comparison: without prior studies available for comparison. FINDINGS: Images of the lower thorax demonstrate the visualized portion of the heartto appear normal. The lung bases are clear. Images of the abdomen demonstrate the overall size and morphology of theliver to be within normal limits. No hepatic lesions are observed. Noascites is seen. The gallbladder is surgically absent. The pancreas,spleen, and adrenal glands appear grossly normal. The kidneys are normal in overall size. On the right there are 2 punctatenonobstructing stones within the lateral calyces. On the left no stones orhydronephrosis is observed. Images of the pelvis demonstrate the urinary bladder to appear normal. Theuterus is normal in size and resides in an anteverted position in the midpelvis. The adnexa appear normal. The stomach and small bowel have a normal overall appearance. The terminalileum appears normal. The appendix is surgically absent. The colon appearsgrossly normal. No adenopathy or abnormal fluid collections are present IMPRESSION: 1. 2 punctate nonobstructing right-sided kidney stones otherwise no acutefindings Ordered By: MAUDE BOURGEOIS Interpreted By: David Sims MD, 02/29/2024 9:41 AM us Maude Bourgeois PILOT SAFETY INSPECTOR CT Final Result * XR CHEST PORTABLE (02/29/2024 9:12 AM SUCCESS COACH) Anatomical Region Laterality Modality Chest Radiographic Jaclyn ging 02/29/2024 9:13 AM SUCCESS COACH Impressions 02/29/2024 9:13 AM SUCCESS COACH IMPRESSION: Negative chest Ordered By: MAUDE BOURGEOIS Interpreted By: David Sims MD, 02/29/2024 9:13 AM Narrative 02/29/2024 9:13 AM SUCCESS COACH [place] [address] SINGLE VIEW OF THE CHEST Clinical history: Pain Comparison: None A single view of the chest demonstrates the cardiac silhouette to be normal in size and appearance. The pulmonary vessels are normally distributed. The Lungs are clear. No consolidations or effusions are seen. Procedure Note David Sims MD - 02/29/2024 [place] [address] SINGLE VIEW OF THE CHEST Clinical history: Pain Comparison: None A single view of the chest demonstrates the cardiac silhouette to benormal in size and appearance. The pulmonary vessels are normallydistributed. The Lungs are clear. No consolidations or effusions are seen. IMPRESSION: Negative chest Ordered By: MAUDE BOURGEOIS Interpreted By: David Sims MD, 02/29/2024 9:13 AM Maude Bourgeois PILOT SAFETY INSPECTOR GENERAL IMAGING Final Result * POCT urine (02/29/2024 8:46 AM SUCCESS COACH) URINE HCG TEST NEGATIVE Internal Control: VALID us Maude Bourgeois NP POINT OF CARE TEST ORDERABLES Final Result * URINALYSIS (02/29/2024 8:45 AM SUCCESS COACH) [facility] SPECIMEN TYPE URINE CLEAN CATCH 02/29/2024 8:47 AM [facility] COLOR (U) LIGHT YELLOW 02/29/2024 9:08 AM [facility] TRANSPARENCY CLEAR 02/29/2024 9:08 AM [facility] SPECIFIC GRAVITY (U) 1.009 1.001 - 1.030 02/29/2024 9:08 AM [facility] U PH 7.0 5.0 - 9.0 02/29/2024 9:08 AM [facility] LEUKOCYTES (U) NEGATIVE NEGATIVE 02/29/2024 9:08 AM [facility] NITRITES NEGATIVE NEGATIVE 02/29/2024 9:08 AM [facility] PROTEIN RANDOM (U) NEGATIVE <30 MG/DL 02/29/2024 9:08 AM [facility] GLUCOSE (U) NORMAL NORMAL MG/DL 02/29/2024 9:08 AM [facility] KETONES MG/DL (U) NEGATIVE NEGATIVE MG/DL 02/29/2024 9:08 AM [facility] UROBILINOGEN NORMAL NORMAL MG/DL 02/29/2024 9:08 AM [facility] BILIRUBIN (U) NEGATIVE NEGATIVE MG/DL 02/29/2024 9:08 AM [facility] BLOOD (U) NEGATIVE NEGATIVE 02/29/2024 9:08 AM [facility] URINE SPECIMEN OBTAINED BY CLEAN CATCH PROCEDURE / Unknown 02/29/2024 8:45 AM SUCCESS COACH Maude Bourgeois PILOT SAFETY INSPECTOR URINE ORDERABLES Final Result Performing Organization Address City/[facility]/ZIP Co de Phone Number [facility] [address] [place] [address], [place] [phone] * PROTIME/INR, VENOUS (02/29/2024 8:45 AM SUCCESS COACH) PROTIME 11.9 10.2 - 12.9 SEC 02/29/2024 9:16 AM SUCCESS COACH [facility] INR 1.0 02/29/2024 9:16 AM SUCCESS COACH [facility] Comment: Recommended INR Therapeutic Goals: 2.0-3.0 Routine Therapy 2.5-3.5 Mechanical Prosthetic Valves (High Risk) 02/29/2024 8:45 AM SUCCESS COACH Maude Bourgeois NP LABORATORY Final Result Performing Organization Address [facility] Co de Phone Number [facility] [address] [place] [address], [place] [phone] * (ABNORMAL) COMPREHENSIVE METABOLIC PANEL (02/29/2024 8:45 AM SUCCESS COACH) GLUCOSE 100(H) 70 - 99 MG/DL 02/29/2024 9:36 AM SUCCESS COACH [facility] BUN 8 7 - 18 MG/DL 02/29/2024 9:36 AM SUCCESS COACH [facility] CREATININE S/P/B 0.64 0.55 - 1.02 MG/DL 02/29/2024 9:36 AM SUCCESS COACH [facility] SODIUM S/P/B 136 136 - 145 MMOL/L 02/29/2024 9:36 AM SUCCESS COACH [facility] POTASSIUM S/P/B 4.0 3.5 - 5.1 MMOL/L 02/29/2024 9:36 AM [facility] CHLORIDE S/P/B 109 97 - 115 MMOL/L 02/29/2024 9:36 AM [facility] CO2 22.6 21 - 32 MMOL/L 02/29/2024 9:36 AM [facility] CALCIUM S/P/B 9.4 8.5 - 10.1 MG/DL 02/29/2024 9:36 AM [facility] BILIRUBIN TOTAL S/P/B 0.4 0.2 - 1.2 MG/DL 02/29/2024 9:36 AM [facility] Comment: THIS ASSAY IS NOT RECOMMENDED FOR PATIENTS UNDERGOING TREATMENT WITH ELTROMBOPAG DUE TO THE POTENTIAL FOR FALSELY ELEVATED RESULTS. TOTAL PROTEIN S/P/B 7.9 6.4 - 8.2 G/DL 02/29/2024 9:36 AM [facility] ALBUMIN S/P/B 3.8 3.4 - 5.0 G/DL 02/29/2024 9:36 AM [facility] AST 25 15 - 37 U/L 02/29/2024 9:36 AM [facility] ALT 53 14 - 55 U/L 02/29/2024 9:36 AM [facility] ALKALINE PHOSPHATASE S/P/B 78 50 - 136 U/L 02/29/2024 9:36 AM [facility] ANION GAP 4.4 2 - 10 MMOL/L 02/29/2024 9:36 AM [facility] BUN CREATININE RATIO 12.5 6 - 26 02/29/2024 9:36 AM [facility] A/G RATIO 0.9(L) 1.0 - 2.0 RATIO 02/29/2024 9:36 AM [facility] GFR ESTIMATE >90 >90 ML/MIN/1.7 3 M2 02/29/2024 9:36 AM SUCCESS COACH [facility] Comment: NOTE: eGFR is not calculated for patients <18 years of age or gender unknown. This is an estimated GFR calculation using the new CKD EPI creatinine equation without race and so does not require a correction factor for race. This estimated GFR should not be used for calculating drug doses. 02/29/2024 8:45 AM SUCCESS COACH Maude Bourgeois NP LABORATORY Final Result Performing Organization Address [facility] Co de Phone Number [facility] [address] [place] [address], [place] [phone] * D-DIMER, QUANTITATIVE (02/29/2024 8:45 AM SUCCESS COACH) D-DIMER 220 0 - 500 ng{FEU}/mL 02/29/2024 9:26 AM SUCCESS COACH [facility] Comment: D-Dimer values less than or equal to 500 ng/mL FEU have a negative predictive value of >95% for exclusion of deep vein thrombosis and pulmonary embolism. In patients over 50 (who tend to have higher normal baseline D-Dimer values), recent studies suggest age-adjusted D-Dimer cutoff values (calculated as: age [years] x 10 ng/mL) result in equivalent outcomes and no additional false negative findings. 02/29/2024 8:45 AM SUCCESS COACH Maude Bourgeois NP LABORATORY Final Result [facility] [address] [place] [address], [place] [phone] * CBC W/DIFF AUTOMATED (02/29/2024 8:45 AM SUCCESS COACH) WBC 8.93 4.5 - 11.0 x10'3/uL 02/29/2024 9:09 AM [facility] RBC 5.01 4.20 - 5.40 x10'6/uL 02/29/2024 9:09 AM [facility] HGB 14.5 12.0 - 16.0 G/DL 02/29/2024 9:09 AM [facility] HCT 43.6 38.0 - 48.0 % 02/29/2024 9:09 AM [facility] MCV 87.0 81.0 - 99.0 FL 02/29/2024 9:09 AM [facility] MCH 28.9 27.0 - 31.0 PG 02/29/2024 9:09 AM [facility] MCHC 33.3 32.0 - 36.0 G/DL 02/29/2024 9:09 AM [facility] RDW 13.4 11.5 - 14.5 % 02/29/2024 9:09 AM [facility] PLT 298 130 - 400 x10'3/uL 02/29/2024 9:09 AM [facility] MPV 9.8 9.3 - 12.2 FL 02/29/2024 9:09 AM [facility] DIFFERENTIAL TYPE AUTOMATED DIFFERENTIAL 02/29/2024 9:09 AM [facility] NEUTROPHILS % 75.3 % 02/29/2024 9:09 AM [facility] LYMPHOCYTES % 19.1 % 02/29/2024 9:09 AM [facility] MONOCYTES % 4.5 % 02/29/2024 9:09 AM [facility] EOSINOPHILS 0.6 % 02/29/2024 9:09 AM [facility] BASOPHILS 0.2 % 02/29/2024 9:09 AM SUCCESS COACH [facility] IMMATURE GRANS % 0.3 % 02/28/19 9:09 AM SUCCESS COACH [facility] ABS. NEUTROPHILS 6.72 1.80 - 7.70 x10'3/uL 02/29/2024 9:09 AM SUCCESS COACH [facility] ABS. LYMPHOCYTES 1.71 1.00 - 4.80 x10'3/uL 02/29/2024 9:09 AM SUCCESS COACH [facility] ABS. MONOCYTES 0.40 0.24 - 0.86 x10'3/uL 02/29/2024 9:09 AM SUCCESS COACH [facility] ABS. EOSINOPHILS 0.05 0.04 - 0.36 x10'3/uL 02/29/2024 9:09 AM SUCCESS COACH [facility] ABS. BASOPHILS 0.02 0.01 - 0.08 x10'3/uL 02/29/2024 9:09 AM SUCCESS COACH [facility] ABS. IMMATURE GRANULOCYTES 0.03 0.00 - 0.49 x10'3/uL 02/29/2024 9:09 AM [facility] 02/29/2024 8:45 AM SUCCESS COACH us Maude Bourgeois NP LABORATORY Final Result [facility] [address] [place] [address], [place] [phone] from Last 3 Months Insurance [employer] Care Teams Print Press Operator Relationship Specialty Start Date End Date David Garcia MD [address] [place], [place] [id number] PCP - General FAMILY PRACTICE 02/29/24
--- OUTSIDE RECORDS SUMMARY | 2024-05-14 01:30 | XMS_ITS ---
Author Organization [facility] Address [address] [place] [address] Care Team Providers Care Curriculum Development Coordinator Name Role Phone Irma Boateng Primary Care Provider REASON FOR VISIT CCS Social History Sex Assigned At : Social History Observation Description Sex Assigned At Female Encounters Encounter Location Date Provider Diagnosis [address] [place] [address] 07/10/2023 Irma Boateng Encounter for screening for malignant neoplasm of cervix Z12.4 Assessments Encounter Date Diagnosis (ICD Code) Assessment Notes Treatment Notes Treatment Clinical Notes Section Notes 07/10/2023 Encounter for screening for malignant neoplasm of cervix (ICD-10 - Z12.4) Patient Educated with: Learning about Cervical Cancer Screenings.pdf (Learning about Cervical Cancer Screenings.pdf ) Plan Of Treatment Treatment Notes Assessment Notes Encounter for screening for malignant neoplasm of cervix Patient Educated with: Learning about Cervical Cancer Screenings.pdf (Learning about Cervical Cancer Screenings.pdf) Progress Notes * MARIAMA, AmeenaOB:[birth year] (37 yo F)Acc No.[id number]:07/10/2023 Patient: Suzette DAWN :1985 A ge:37 Y S ex:Female Address:[address] [place], [address] Subjective: * Chief Complaints: * C CS * Medical History: * Surgical History: * Hospitalization/Major Diagno stic Procedure: * Medications: Objective: * Vitals: * Physical Examination: Assessment: * Assessment: 1. E ncounter for screening for malignant neoplasm of cervix - Z12.4 Plan: * Treatment: * Procedure Codes: * true * Date: Generated for Bebe augustin/Faina/Karin on: 0 05/14/2024 01:29 AM CDT
--- OUTSIDE RECORDS SUMMARY | 2024-05-14 01:30 | XMS_ITS ---
Author Organization [facility] Address [address] [place] [address] Care Team Providers Care Attorney Recruiter Name Role Phone Irma Boateng Primary Care Provider Kiki Sun [phone] REASON FOR VISIT Update Social History Sex Assigned At : Social History Observation Description Sex Assigned At Female Encounters Encounter Location Date Provider Diagnosis [address] [place] [address] 02/15/2024 Kiki Sun Plan Of Treatment No Information Progress Notes * Wendi ENGZackOB:[birth year] (38 yo F)Acc No.[id number]:02/15/2024 Patient: Suzette DAWN :1985 A ge:38 Y S ex:Female Address:[address] [place] [address], [id number] * true * Date: Generated for Bebe augustin/Faina/eTransmitting on: 0 05/14/2024 01:30 AM CDT
--- OUTSIDE RECORDS SUMMARY | 2024-05-14 01:30 | XMS_ITS | Patient Health Record ---
Author Organization [facility] Address [address] [place] [address] Care Team Providers Care Wire Winder Name Role Phone Irma Boateng Primary Care Provider [phone] Kiki Sun Unavailable [phone] Allergies Allergen (clinical drug ingredient) Drug/Non Drug Allergy documented on EMR Reaction Allergy Type Onset Date Status acetaminophen Tylenol Unknown Drug Allergy Act galo Iodinated contrast media (substance) Iodinated Diagnostic Agents Unknown Drug Allergy Active prednisone Prednisone Unknown Drug Allergy Activ e Reason For Referral No Information Medications Medication SIG (Take, Route, Frequency, Duration) [...] Problem Status W/U Status Risk Notes Problem Generalized anxiety disorder (09562841) Generalized anxiety disorder (F41.1) Active confirmed Problem Extrapyramidal movements (755360684) Extrapyramidal and movement disorder, unspecified (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) Active confirmed Problem Major depression (359729144) Major depression (F32.9) Active confirmed Problem Chronic pain (37864042) Chronic pain (G89.29) Active confirmed Problem Schizoaffective disorder (82420011) Schizo-affective schizophrenia (F25.9) Active confirmed Vital Signs Heart Rate 79 /min 02/11/2024 Blood pressure diastolic 74 mm Hg 02/11/2024 Oximetry 97 % 02/11/2024 Height 62 in 02/11/2024 Blood pressure systolic 128 mm Hg 02/11/2024 Weight 178.6 lbs 02/11/2024 BMI 32.66 kg/m2 02/11/2024 Encounters Encounter Location Date Provider Diagnosis [facility] [address] [place] [address] 02/11/2024 Kiki Sun Establishing care wi new doctor, encounter for Z71.89 ; Screening for deficiency anemia Z13.0 ; Screening for metabolic disorder Z13.228 ; Screening for thyroid disorder Z13.29 ; Screening for diabetes mellitus Z13.1 ; Screening for hyperlipidemia Z13.220 ; Exposure to potential infection Z20.9 and Chronic pain G89.[address] [place] [address] 07/10/2023 Irma Boateng Encounter for screening for malignant neoplasm of cervix Z12.[address] [place] [address] 02/15/2024 Kiki Sun Assessments Encounter Date Diagnosis (ICD Code) Assessment Notes Treatment Notes Treatment Clinical Notes Section Notes 02/11/2024 Establishing care with new doctor, encounter for (ICD-10 - Z71.89) 02/11/2024 Screening for deficiency anemia (ICD-10 - Z13.0) 07/10/2023 Encounter for screening for malignant neoplasm of cervix (ICD-10 - Z12.4) Patient Educated with: Learning about Cervical Cancer Screenings.pd f (Learning about Cervical Cancer Screenings.pd f) 02/11/2024 Screening for metabolic disorder (ICD-10 - Z13.228) 02/11/2024 Screening for thyroid disorder (ICD-10 - Z13.29) 02/11/2024 Screening for diabetes mellitus (ICD-10 - Z13.1) 02/11/2024 Screening for hyperlipidemia (ICD-10 - Z13.220) 02/11/2024 Exposure to potential infection (ICD-10 - Z20.9) 02/11/2024 Chronic pain (ICD-10 - G89.29) Plan Of Treatment No Information Insurance Providers Payer Name Payer Address Payer Phone Subscriber Number Group Number Insured Name Patient Relationship to Insured Coverage Start Date Coverage End Date [employer] [address] [place] [address] [id number] Suzette Eng Self - patient is the insured 2 [email or web address] [address] [place] [address] [id number] Suzette Eng Self - patient is the insured 2 Medications Administered Medication Instructions Date of Administration Dosage Notes Haldol Decanoate 05/08/2022 200 mg Patient tolerated well Invega Sustenna 08/04/2021 234 mg patient t olerated well, declines informational packet, denies any questions or concerns at this time. Invega Sustenna 09/19/2021 234 mg Patient t olerated well. Invega Sustenna 12/29/2021 234 mg Pt. denie s pain at this time. Medical (General) History Medical History History ICD Code Fibromyalgia Surgical History Surgery Date(Month/Year) Ablation 2018 cholecystectomy 2023 appendectomy 04/07 Hospitalization History Reason Date(Month/Year) Psychosis with Suicidal Ideation June Psychosis with Suicidal Ideation May 14
--- OUTSIDE RECORDS SUMMARY | 2024-05-14 01:30 | XMS_ITS | Clinical Summary ---
Author Organization [facility] Address [address] [place] [address] Care Team Providers Care Supervisor Elementary Education Name Role Phone David Garcia MD Primary Care Provider [phone] [facility],non-owned Affiliates and Associated Physician Practices is amultiple site organization consisting of ambulatory clinics and hospital sitesin [place] and [place]. This disclosure is being madepursuant to the Care Everywhere program and may not contain all information available regarding this patient. Last updated 17.[facility] Social History Tobacco Use Types Packs/Day Years Used Date Smoking Tobacco: Never Assessed Sex and Gender Information Value Date Recorded Sex Assigned at Not on file Gender Identity Not on file Sexual Orientation Not on file Plan of Treatment Health Maintenance Due Date Last Done Comments PAP SMEAR 1987 HIV SCREENING 08/17/2002 HEPATITIS C SCREENING 08/13/2005 DTAP/TDAP/TD VACCINES (1 - Tdap) 08/17/2006 HEPATITIS B VACCINE (1 of 3 - 19+ 3-dose series) 08/17/2006 COVID-19 VACCINE ( - 2023-2 5 season) 2023 INFLUENZA VACCINE (#1) 2023 DEPRESSION SCREENING 02/13/2024 ZOSTER VACCINE (1 of 2) 08/17/2037 HIB VACCINE Aged Out No longer eligi ble based on patient's age to complete this topic HPV VACCINE Aged Out No longer eligi ble based on patient's age to complete this topic MENINGOCOCCAL (Group B) VACC INE SHARED DECISION-MAKING Aged Out No longer eligibl e based on patient's age to complete this topic MENINGOCOCCAL GROUPS A/C/Y/W VACCINE Aged Out No longer eligible b ased on patient's age to complete this topic PNEUMOCOCCAL VACCINE Aged Out No long er eligible based on patient's age to complete this topic Insurance Payer Benefit Plan / Group Subscriber ID Effective Dates Phone Address Type [facility] MEDICAID [id number] Effective for all dates [address] [place] [address] Medicaid Managed Care SELF PAY NO INSURANCE SELF PAY NO INSURANCE Effective for all dates [place] Self Pay [facility] MEDICAID [id number] Effective for all dates [address] [place] [address] Medicaid Managed Care SELF PAY NO INSURANCE SELF PAY NO INSURANCE Effective for all dates [place] Self Pay [facility] MEDICAID [id number] Effective for all dates [address] [place] [address] Medicaid Managed Care SELF PAY NO INSURANCE SELF PAY NO INSURANCE Effective for all dates [place] Self [place] [facility] [id number] Effective for all dates [address] [place] [address] Medicaid Managed Care SELF PAY NO INSURANCE SELF PAY NO INSURANCE Effective for all dates [place] Self [place] [facility] MEDICAID [id number] Effective for all dates [address] [place] [address] Medicaid Managed Care SELF PAY NO INSURANCE SELF PAY NO INSURANCE Effective for all dates [place] [facility] MEDICAID [id number] Effective for all dates [address] [place] [address] Medicaid Managed Care SELF PAY NO INSURANCE SELF PAY NO INSURANCE Effective for all dates [place] Self [place] [facility] MEDICAID [id number] Effective for all dates [address] [place] [address] Medicaid Managed Care SELF PAY NO INSURANCE SELF PAY NO INSURANCE Effective for all dates [place] Self [place] [facility] [id number] Effective for all dates [address] [place] [address] Medicaid [place] Care Teams Supervisor Elementary Education Relationship Specialty Start Date End Date David Garcia MD [address] [place] [address] PCP - General 12/04/17
--- NOTE | 2024-05-14 10:37 | P.PNAN_ITS ---
Anes - Initial Pre Proc Eval Procedure: Operation Date: 05/14/24 11:15 Proposed Procedures p Esophagogastroduodenoscopy - Nilton Quevedo MD Date/Time: 05/14/24 10:37 Surgeon: Nilton Quevedo MD Pre Op Diagnosis: Nausea with vomiting, gastritis without bleeding Patient Data Age: 38 Gender: F Height: 1.63 m Weight: 82.1 kg Allergies Allergy/AdvReac Type Severity Reaction Status Date / Time cefuroxime Allergy Unknown Rash Verified 05/08/24 10:46 Iodinated Contrast Media Allergy Unknown Hives Verified 05/08/24 10:46 acetaminophen AdvReac Mild Hives Verified 05/08/24 10:46 banana AdvReac Mild Hives Verified 05/08/24 10:46 iohexol (From CONTRAST - CT, AdvReac Mild Hives Verified 05/08/24 10:46 XRAY) prednisone AdvReac Mild Rash Verified 05/08/24 10:46 Home Medications ?Medication ?Instructions ?Recorded ?Confirmed ?Type pregabalin 150 mg capsule 150 mg PO BID #60 caps 04/14/24 05/08/24 Rx cholestyramine (with sugar) 4 gram 4 g PO DAILY #30 ea 04/18/24 05/08/24 Rx powder for susp in a packet nitrofurantoin 100 mg PO Q12H 5 days #10 caps 05/03/24 05/08/24 Rx monohydrate/macrocrystals 100 mg capsule (Macrobid) omeprazole 20 mg capsule,delayed 20 mg PO .QD 05/03/24 05/08/24 History release Patient hx anesthesia problems: none Family hx anesthesia problems: none Results Review: All pre-operative results and documents have been reviewed as part of the pre- operative evaluation. [facility] Past Medical History Medical History Acute appendicitis Cholecystitis Acute cholecystitis BMI 30.0-30.9,adult Obesity Tobacco abuse BRBPR (bright red blood per rectum) Nausea & vomiting Arthralgia BMI 29.0-29.9,adult Sciatica of left side Fibromyalgia Schizoaffective disorder Smoker Bipolar disorder Schizophrenia Healthy adult Surgical History Surgical History Hx laparoscopic cholecystectomy 05/28/23 Dr. Ania Best S/P laparoscopic appendectomy 03/30/23; w/ Dr. Ania Best History of endometrial ablation November 2014 H/O tubal ligation November 2014 Family History Family History Mother Breast cancer Depression Father Unknown family medical history Sibling , Onset Age: 38 suicide Sibling Deaf Other Diabetes mellitus Family history of cardiovascular disease Family history of malignant neoplasm of breast Family history of malignant neoplasm of ovary Social History Social History Smoking packs per day: 0.25 Smoking cigarettes per day: 5.0 Years smoked: 1 Smoking pack-years: 0.25 Smoking status: Current every day smoker Tobacco type: cigarettes and e-cigarettes/vaping Second hand tobacco smoke exposure: Yes Alcohol intake: never Drinks per week: 20 Substance use: current Substance use type: marijuana Other substance usage details: vapes Last use: 2x weekly Do You Feel Safe in your Home?: Yes Lack of Transportation: No Lack of Food: Never True Current Housing: I Have Housing Concerned About Future Housing: No Difficulty Paying Gas/Electric Bills: No Difficulty Paying for Meds: No Currently Unemployed: No Education: High School Diploma/GED Difficulty w/ Childcare or Family Care: No Living arrangements: with family Occupation/Education: occupation Additional occupation/education comments: [employer] Gender identity (if verbalized by the patient): Female Sexual Orientation (if Verbalized by the Patient): Straight or Heterosexual Spiritual care concerns: No Agree to blood products: Yes Anes - Eval Final PreProcedure Day of Procedure 05/14/24 10:37 Patient weight: obese Heart: regular rate and rhythm Lungs: clear to auscultation Airway: Mallampati scale class II Neurological: alert and oriented Last oral intake: >/= 8 hours ASA classification: III Emergent: no Anesthetic plan: proceed Anesthesia type and monitoring: general GIVS and standard monitoring Results Review: All pre-operative results and documents have been reviewed as part of the pre- operative evaluation. Informed Consent: The patient's anesthetic plan and its attendant risks and benefits were discussed with the patient/family/POA. Questions were solicited and answers provided to the satisfaction of the patient/family/POA.
[2024-05-14 10:40] VITALS: BP 129/84; PULSE 54; RESP 18; TEMP 36.9; O2SAT 100
[2024-05-14] MEDS: LACTATED RINGERS 1,000 ML 150 ML IV CONT (10:43)
--- NOTE | 2024-05-14 10:53 | P.HP_ITS ---
History of Present Illness History of Present Illness Consent: Risks, benefits, and alternatives have been discussed and questions answered. Patient agrees to proceed with procedure. Chief complaint: Nausea with vomiting, gastritis without bleeding Narrative: Suzette Eng is a 38 year old female here for egd, last one 2022 that looked normal but bx showed h pylori, no celiac. She has been having nausea and vomiting since December of 2023. She wakes up in the morning and instantly has to throw up due to nausea. Using ppi daily. Review of Systems Review of Systems: All systems reviewed & are unremarkable except as noted in HPI and below PMFSH Past Medical History Medical History Acute appendicitis Cholecystitis Acute cholecystitis BMI 30.0-30.9,adult Obesity Tobacco abuse BRBPR (bright red blood per rectum) Nausea & vomiting Arthralgia BMI 29.0-29.9,adult Sciatica of left side Fibromyalgia Schizoaffective disorder Smoker Bipolar disorder Schizophrenia Healthy adult Surgical History Surgical History Hx laparoscopic cholecystectomy 05/28/23 Dr. Ania Best S/P laparoscopic appendectomy 03/30/23; w/ Dr. Ania Best History of endometrial ablation November 2014 H/O tubal ligation November 2014 Family History Family History Mother Breast cancer Depression Father Unknown family medical history Sibling , Onset Age: 38 suicide Sibling Deaf Other Diabetes mellitus Family history of cardiovascular disease Family history of malignant neoplasm of breast Family history of malignant neoplasm of ovary Social History Social History Smoking packs per day: 0.25 Smoking cigarettes per day: 5.0 Years smoked: 1 Smoking pack-years: 0.25 Smoking status: Current every day smoker Tobacco type: cigarettes and e-cigarettes/vaping Second hand tobacco smoke exposure: Yes Alcohol intake: never Drinks per week: 20 Substance use: current Substance use type: marijuana Other substance usage details: vapes Last use: 2x weekly Do You Feel Safe in your Home?: Yes Lack of Transportation: No Lack of Food: Never True Current Housing: I Have Housing Concerned About Future Housing: No Difficulty Paying Gas/Electric Bills: No Difficulty Paying for Meds: No Currently Unemployed: No Education: High School Diploma/GED Difficulty w/ Childcare or Family Care: No Living arrangements: with family Occupation/Education: occupation Additional occupation/education comments: [employer] Gender identity (if verbalized by the patient): Female Sexual Orientation (if Verbalized by the Patient): Straight or Heterosexual Spiritual care concerns: No Agree to blood products: Yes Meds Home Medications and Allergies Home Medications ?Medication ?Instructions ?Recorded ?Confirmed ?Type pregabalin 150 mg capsule 150 mg PO BID #60 caps 04/14/24 05/14/24 Rx cholestyramine (with sugar) 4 gram 4 g PO DAILY #30 ea 04/18/24 05/14/24 Rx powder for susp in a packet nitrofurantoin 100 mg PO Q12H 5 days #10 caps 05/03/24 05/14/24 Rx monohydrate/macrocrystals 100 mg capsule (Macrobid) omeprazole 20 mg capsule,delayed 20 mg PO .QD 05/03/24 05/14/24 History release Allergies Allergy/AdvReac Type Severity Reaction Status Date / Time cefuroxime Allergy Unknown Rash Verified 05/14/24 10:39 Iodinated Contrast Media Allergy Unknown Hives Verified 05/14/24 10:39 acetaminophen AdvReac Mild Hives Verified 05/14/24 10:39 banana AdvReac Mild Hives Verified 05/14/24 10:39 iohexol (From CONTRAST - CT, AdvReac Mild Hives Verified 05/14/24 10:39 XRAY) prednisone AdvReac Mild Rash Verified 05/14/24 10:39 Vital Signs Vital Signs - 24 hr 05/14/24 10:40 Temperature 98.4 F Pulse Rate 54 L Respiratory Rate 18 Blood Pressure 129/84 Pulse Oximetry 100 Oxygen Delivery Room Air Exam Const: General: comfortable and no acute distress HENMT: Face/Nose/Sinus: Normal nares present Eyes: General: appearance normal, both eyes and all related structures Neck: Neck: no JVD Resp: Auscultation: clear to auscultation bilaterally Cardio: Rate: regular rate Rhythm: regular rhythm GI: Inspection: non-distended GI Palp: Yes Soft to palpation Skin: General skin exam: normal color Neuro: General: gait normal Speech: normal speech Extrem: General: normal to inspection Psych: Mental Status: mental status grossly normal Assessment and Plan Assessment and plan (1) Nausea & vomiting: Code(s): R11.2 - Nausea with vomiting, unspecified Status: Acute Assessment and Plan: egd with bx
[2024-05-14 11:00] VITALS: BP 102/63; PULSE 75; RESP 18; O2SAT 96
[2024-05-14 11:00] LABS: BEDSIDEPREGUCG Negative (Negative)
[2024-05-14 11:10] VITALS: BP 115/78; PULSE 79; RESP 18; O2SAT 100
[2024-05-14 11:20] VITALS: BP 118/86; PULSE 64; RESP 18; O2SAT 100
[2024-05-14 12:26] LABS: HPYLORIRESULT Negative (Negative)
== END 2024-05-14 11:26 | disposition home or self-care (01) ==
PROVIDERS: PCP Family Medicine; Referring Provider Nurse Practitioner; Visit Provider Internal Medicine Gastroenterology
PROC: 0DJ08ZZ Inspection of Upper Intestinal Tract, Via Natural or Artificial Opening Endoscopic (ICD-10-PCS; CPT 43239; principal; 2024-05-14 11:15)
DX: K29.50 Unspecified chronic gastritis without bleeding (principal); M79.7 Fibromyalgia; F31.9 Bipolar disorder, unspecified; F20.9 Schizophrenia, unspecified; F12.90 Cannabis use, unspecified, uncomplicated; F17.210 Nicotine dependence, cigarettes, uncomplicated; F17.290 Nicotine dependence, other tobacco product, uncomplicated; E66.9 Obesity, unspecified; Z68.29 Body mass index [BMI] 29.0-29.9, adult; Z98.890 Other specified postprocedural states; Z90.49 Acquired absence of other specified parts of digestive tract; Z98.51 Tubal ligation status; Z98.891 History of uterine scar from previous surgery; Z87.19 Personal history of other diseases of the digestive system; Z80.3 Family history of malignant neoplasm of breast; Z80.41 Family history of malignant neoplasm of ovary; Z82.49 Family history of ischemic heart disease and other diseases of the circulatory system
CPT/HCPCS: 43239; 87081; 88305; J2704; J7120